=== PATIENT | male | born 1975 | race Caucasian/White ===

== ENCOUNTER 2020-12-04 08:45 | Outpatient (REF) | payer OTHER, SELFPAY ==
[2020-12-04 11:56] LABS: Alanine Aminotransferase 29 U/L (0-40); Albumin Level 3.5 g/dL (3.5-5.0); Alkaline Phosphatase 88 U/L (39-117); Anion Gap 11 (12-20); Aspartate Amino Transferase 30 U/L (5-37); Bilirubin Total 0.6 mg/dL (0.0-1.0); Blood Urea Nitrogen 17 mg/dL (9-16); Calcium 8.7 mg/dL (8.4-10.2); Carbon Dioxide 29 mmol/L (22-29); Chloride 107 mmol/L (96-108); Cholesterol 168 mg/dL; Estimated Glomerular Filt Rate > 60; Glucose Fasting 74 mg/dL (60-99); HDL Cholesterol 28 mg/dL; LDL Cholesterol Calculated 115 mg/dl; Potassium 4.3 mmol/L (3.3-5.1); Sodium 143 mmol/L (135-145); Total Protein 6.2 g/dL (6.5-8.0); Triglycerides 127 mg/dL
[2020-12-04 12:05] LABS: Creatinine Urine 159.47 mg/dL
[2020-12-04 12:18] LABS: TSH reflex Free T4 2.61 uIU/mL (0.32-4.0)
[2020-12-04 12:39] LABS: Microalbum/Creatinine Ratio Ur 1639.8 ug/mg cr
== END 2020-12-04 08:46 | disposition home or self-care (01) ==
LOC: HO.WFDLDS 08:45
PROVIDERS: Visit Provider Family Medicine
DX: Z00.00 Encounter for general adult medical examination without abnormal findings (principal); I10 Essential (primary) hypertension
CPT/HCPCS: 36415; 80053; 80061; 82043; 84443

== ENCOUNTER 2020-12-20 09:21 | Inpatient (IN) | payer OTHER, SELFPAY ==
--- NOTE | ~2020-12-20 | US_ITS ---
EXAMINATION: BILATERAL LOWER EXTREMITY DUPLEX CLINICAL INFORMATION: Diabetic foot ulcer COMPARISON: None TECHNIQUE: Real-time ultrasound and Doppler techniques (integrating B-mode 2-D vascular images, Doppler spectral analysis and color flow Doppler imaging) were utilized to interrogate the lower extremities. FINDINGS: RIGHT LEG: Common femoral artery: 144 cm/s, multiphasic Profunda femoris artery: 71.5 cm/s, multiphasic Superficial femoral artery (proximal): 135 cm/s, multiphasic Superficial femoral artery (mid): 112 cm/s, multiphasic Superficial femoral artery (distal): 128 cm/s, multiphasic Proximal popliteal artery: 109 cm/s, multiphasic Peroneal artery: 143 cm/s, multiphasic Posterior tibial artery: 156 cm/s, multiphasic LEFT LEG: Common femoral artery: 122 cm/s, multiphasic Profunda femoris artery: 65.7 cm/s, multiphasic Superficial femoral artery (proximal): 114 cm/s, multiphasic Superficial femoral artery (mid): 103 cm/s, multiphasic Superficial femoral artery (distal): 73.9 cm/s, multiphasic Popliteal artery: 76.8 cm/s, multiphasic Peroneal artery: 67.4 cm/s, multiphasic Posterior tibial artery: 55 cm/s, multiphasic US/US arterial duplex LE BI IMPRESSION: There is no evidence of any hemodynamically significant lower extremity arterial disease by duplex Doppler criteria at rest.
--- NOTE | ~2020-12-20 | MR_ITS ---
EXAMINATION: MRI OF THE RIGHT FOOT WITH AND WITHOUT CONTRAST CLINICAL INFORMATION: Rule out osteomyelitis. COMPARISON: Radiograph dated 12/20/2020 TECHNIQUE: Multidetector volumetric imaging was obtained through the right foot on a 1.5 Estela magnet before and after intravenous administration of 10 mL Gadavist. FINDINGS: A soft tissue wound is suspected at the dorsal aspect of the third toe around the nailbed near the distal phalanx. There is underlying marrow edema signal and hyperenhancement within the distal and middle phalanges. There is loss of normal fat marrow signal intensity within the middle phalanx on T1-weighted images, consistent with osteomyelitis. Normal fat signal intensity in the distal phalanx appears relatively well-preserved. Tiny soft tissues are edematous with hyperenhancement. No appreciable fluid collections are identified. Soft tissue edema extends proximally within the forefoot and midfoot, most pronounced along the dorsal soleus fat. No tenosynovitis. No additional areas of osteomyelitis are identified. Minimal first MTP osteoarthritis. The great toe distal phalanx is absent. Plantar fascial is normal. MR/MR foot RT wo/w con IMPRESSION: Acute osteomyelitis at the middle phalanx of the third toe. There is a soft tissue wound at the dorsal aspect of the third toe near the distal phalanx. Reactive marrow edema signal is present in the distal phalanx without more definitive findings of osteomyelitis. No abscess.
--- NOTE | ~2020-12-20 | XR_ITS ---
EXAMINATION: XR FOOT, RIGHT CLINICAL INFORMATION: Redness and swelling COMPARISON: None TECHNIQUE: AP, lateral, and oblique views of the right foot. FINDINGS: The distal phalanx of the great toe is absent and has presumably been removed. No fracture, dislocation or x-ray evidence of osteomyelitis is seen. There is soft tissue swelling of the great toe and over the midfoot. No abnormal air collection or soft tissue foreign body is seen. Joint spaces are normal. There is soft tissue arterial calcification. There is a small plantar calcaneal spur. XR/XR foot RT 2V IMPRESSION: No fracture or x-ray evidence of osteomyelitis. Absent distal phalanx of the great toe which has presumably been removed. Soft tissue swelling of the great toe and midfoot.
[2020-12-20 09:43] VITALS: BP 180/108; PULSE 94; RESP 20; O2SAT 99
[2020-12-20 10:02] VITALS: BMI 43.0
[2020-12-20 10:13] VITALS: TEMP 36.8
--- NOTE | 2020-12-20 10:39 | ED.LOWEXIN ---
HPI - Extremity Injury (Lower) General Chief Complaint: Extremity Injury, Lower Stated Complaint: rt foot ulcer Time Seen by Provider: 12/20/20 10:37 Source: patient Mode of arrival: ambulatory Limitations: no limitations History of Present Illness HPI Narrative: Foot swelling and redness 4 weeks ago, was told to take antibiotics which he did not get them. Since Friday he developed the swelling and redness. Denies fever or chills. Sugars have been controlled. Relieving factors: nothing Exacerbating factors: nothing Related Data Previous Rx's Medication Instructions Recorded atorvastatin 40 mg tablet 40 mg PO DAILY 90 Days #90 tab 11/21/20 blood sugar diagnostic (FreeStyle #200 ea 11/21/20 Lite Strips) blood-glucose meter (FreeStyle #1 ea 11/21/20 Lite Meter) cholecalciferol (vitamin D3) 1,250 1,250 mcg PO QWEEK 90 Days #12 cap 11/21/20 mcg (50,000 unit) capsule dulaglutide 3 mg/0.5 mL 3 mg (0.5 mL) SUBCUT QWEEK 30 Days 11/21/20 subcutaneous pen injector #2.5 ml (Trulicity) glimepiride 4 mg tablet 4 mg PO DAILY 30 Days #30 tab 11/21/20 insulin aspart U-100 100 unit/mL 6 unit (0.06 mL) SUBCUT TID 30 11/21/20 (3 mL) subcutaneous pen (Novolog Days #6 ml Flexpen U-100 Insulin aspart) insulin glargine 100 unit/mL (3 15 unit (0.15 mL) SUBCUT QAM 30 11/21/20 mL) subcutaneous pen (Lantus Days #6 ml Solostar U-100 Insulin) lancets 28 gauge (FreeStyle #200 ea 11/21/20 Lancets) metformin 1,000 mg tablet 1,000 mg PO DAILY 30 Days #30 tab 11/21/20 pen needle, diabetic 32 gauge x #400 ea 11/21/20 (BD Charissa 2nd Gen Pen Needle) Allergies Allergy/AdvReac Type Severity Reaction Status Date / Time barium sulfate Allergy Unknown chest pain Verified 12/19/20 10:25 No Known Allergies Allergy Verified 12/19/20 10:25 Review of Systems Constitutional: Constitutional: Reports no additional constitutional complaints Eyes: Eyes: Reports no additional eye complaints ENT: Denies dizziness Cardiovascular: Cardiovascular: Reports no additional cardiovascular complaints Respiratory: Respiratory: Reports as per HPI Gastrointestinal: Gastrointestinal: Reports no additional gastrointestinal complaints Musculoskeletal: Musculoskeletal: Reports no additional musculoskeletal complaints Integumentary/Breasts: Skin/Breast: Denies rash Neurologic: Reports system reviewed and no additional complaints, except as documented, Denies dizziness and Denies Sensory deficit (Neuro) Psychiatric: Psychiatric: Denies anxiety [facility] Past Medical History Medical History Diabetes mellitus Right great toe amputee Undescended left testicle Surgical History Hx of tonsillectomy Social History Social History Housing: Apartment Patient Tobacco Use Status: Never used Tobacco e-Cigarette/Vaping Use: Never Used Advance Directives: Yes Advance Directives Information Provided: Yes Advance Directives on File: No service: No Current occupational status: disabled Physical Exam Vital Signs: Vital Signs: Last Vital Signs Temp 98.3 F 12/20/20 10:13 Pulse 94 12/20/20 09:43 Resp 20 12/20/20 09:43 BP 180/108 H 12/20/20 09:43 Pulse Ox 99 12/20/20 09:43 Body Mass Index 43.0 Const: Other: obese male in no acute distress Nutritional Appearance: average body habitus Orientation/consciousness: oriented to person and patient oriented x3 Limitations: no limitations HENMT: Head: Yes normal to inspection Ears: external ears normal General nose exam: Normal external nose present Mouth: Normal oral and palatal mucosa present and oropharynx normal Throat: Yes posterior oropharynx normal Eyes: General: appearance normal, both eyes and all related structures Neck: Other: supple Neck: Yes normal visual inspection Chest: Chest palpation & inspection: normal inspection of the chest Resp: Auscultation: clear to auscultation bilaterally Cardio: Jugular venous distension: no JVD Rate: regular rate Rhythm: regular rhythm Heart sounds: S1 normal heart sound present and S2 normal heart sound present GI: Inspection: Yes normal to inspection Palpation (GI): Soft to palpation, nontender and No hepatosplenomegaly present Auscultation: normal bowel sounds : General: Yes no CVA tenderness Back/Spine/Pelvis: Back: no CVA tenderness Skin: General skin exam: no rashes or lesions noted Neuro: General: oriented to person and patient oriented x3 Cranial nerves: Yes CN's II-XII intact bilaterally Motor exam (neuro): 5/5 motor strength present throughout Sensory Exam: No Sensory deficit (Neuro) Extrem: Other: right foot with swelling and erythema, right 3rd toe with pus and drainage Psych: Appearance: grossly normal Course Reevaluation(s) Reevaluation #1: Patient with elevated CRP and sed rate will admit for osteo and obtain MRI in the morning Time: 14:24 MDM - Extremity Injury (Lower) Lab Data Result diagrams: 12/20/20 11:23 12/20/20 11:23 Labs: Lab Results 12/20/20 12/20/20 12/20/20 Range/Units 11:23 11:23 11:23 WBC 9.2 (4.8-10.8) X10*3/uL RBC 5.53 (4.60-5.80) X10*6/uL Hgb 14.7 (14.0-18.0) g/dl Hct 46.3 (42.0-52.0) % MCV 83.7 (80.0-98.0) fL MCH 26.6 L (27.0-33.0) pg MCHC 31.7 (31.0-36.0) g/dl RDW 13.4 (11.0-16.0) % Plt Count 291 (160-400) X10*3/uL MPV 9.9 (9.4-12.4) fL Immature Gran % (Auto) 0.9 H (0.0-0.4) % Neut % (Auto) 64.5 (45-73) % Lymph % (Auto) 23.3 (20-40) % [place] % (Auto) 8.1 (2-11) % Eos % (Auto) 2.7 (0-4) % Baso % (Auto) 0.5 (0-2) % Lymph # (Auto) 2.1 (1.2-4.9) X10*3/uL [place] # (Auto) 0.7 (0.1-1.2) X10*3/uL Eos # (Auto) 0.3 (0.0-0.4) X10*3/uL Baso # (Auto) 0.1 (0.0-0.2) X10*3/uL Abs Immat Gran (auto) 0.08 H (0.00-0.03) X10*3/uL Absolute Neuts (auto) 5.9 (2.0-8.3) x10*3/uL Absolute Nucleated RBC 0.000 (0.0-0.012) X10*3/uL Nucleated RBC % (auto) 0.0 (0.0-0.2) /100WBC ESR 63 H (0-15) MM/HR Sodium 141 (135-145) mmol/L Potassium 4.2 (3.3-5.1) mmol/L Chloride 104 (96-108) mmol/L Carbon Dioxide 31 H (22-29) mmol/L Anion Gap 10 L (12-20) BUN 13 (9-16) mg/dL Creatinine 0.91 (0.5-1.4) mg/dL Estim Creat Clear Calc 142.4 Estimated GFR > 60 Random Glucose 111 (60-115) mg/dL Calcium 8.7 (8.4-10.2) mg/dL C-Reactive Protein 4.49 H (< or = 0.50) mg/dL Discharge Plan Discharge Clinical Impression: Diabetes mellitus Osteomyelitis Qualifiers: Osteomyelitis type: other acute Osteomyelitis location: foot Laterality: left Qualified Code(s): M86.172 - Other acute osteomyelitis, left ankle and foot Patient Disposition: Admitted As Inpatient
[2020-12-20] MEDS: Ampicillin Sodium/Sulbactam Na 3 GM in 0.9 % Sodium Chloride 100 ML IV (11:26)
[2020-12-20 11:29] LABS: MANUAL DIFF FLAG NO
[2020-12-20 11:34] LABS: Basophils Absolute Auto 0.1 X10*3/uL (0.0-0.2); Basophils Percent Auto 0.5 % (0-2); Eosinophils Absolute Auto 0.3 X10*3/uL (0.0-0.4); Eosinophils Percent Auto 2.7 % (0-4); Hematocrit 46.3 % (42.0-52.0); Hemoglobin 14.7 g/dl (14.0-18.0); Imm Gran Abs Auto 0.08 X10*3/uL (0.00-0.03); Imm Gran Pct Auto 0.9 % (0.0-0.4); Lymphocytes Absolute Auto 2.1 X10*3/uL (1.2-4.9); Lymphocytes Percent Auto 23.3 % (20-40); Mean Corpuscular HGB Conc 31.7 g/dl (31.0-36.0); Mean Corpuscular Hemoglobin 26.6 pg (27.0-33.0); Mean Corpuscular Volume 83.7 fL (80.0-98.0); Mean Platelet Volume 9.9 fL (9.4-12.4); Monocytes Absolute Auto 0.7 X10*3/uL (0.1-1.2); Monocytes Percent Auto 8.1 % (2-11); Neutrophils Absolute Auto 5.9 x10*3/uL (2.0-8.3); Neutrophils Percent Auto 64.5 % (45-73); Platelet Count 291 X10*3/uL (160-400); Red Blood Count 5.53 X10*6/uL (4.60-5.80); Red Cell Distribution Width 13.4 % (11.0-16.0); White Blood Count 9.2 X10*3/uL (4.8-10.8)
[2020-12-20 11:48] LABS: Anion Gap 10 (12-20); Blood Urea Nitrogen 13 mg/dL (9-16); C Reactive Protein 4.49 mg/dL (< or = 0.50); Calcium 8.7 mg/dL (8.4-10.2); Carbon Dioxide 31 mmol/L (22-29); Chloride 104 mmol/L (96-108); Creatinine Clr Calc Pharmacy 142.4; Estimated Glomerular Filt Rate > 60; Glucose Random 111 mg/dL (60-115); Potassium 4.2 mmol/L (3.3-5.1); Sodium 141 mmol/L (135-145)
[2020-12-20] MEDS: 0.9 % Sodium Chloride 1,000 ML 125 ML IVCONT ×2 (12:18→20:37)
[2020-12-20 12:26] LABS: Erythrocyte Sedimentation Rate 63 MM/HR (0-15)
[2020-12-20 15:51] VITALS: BP 194/106; PULSE 95; RESP 18; TEMP 36.8; O2SAT 95
--- NOTE | 2020-12-20 16:26 | PHA.PROG ---
Admission Date/Time: Indication: Skin and skin structure; possible osteo Weight in k.078 kg Adjusted body weight in K.4 Butler body weight in Kg: Obesity Dosing Indication % IBW: obese model Serum Creatinine - Last 168 Hours 12/20/20 11:23 Creatinine 0.91 Estimated CrCl and GFR - Last 168 Hours 12/20/20 11:23 Estim Creat Clear Calc 142.4 Estimated GFR > 60 Vancomycin Loading Dose: Current Vancomycin Dosing Regimen:1250 q12h Vancomycin Monitoring using AUC goal of 400 - 600 range with trough as surrogate marker: AUC 554; Trough 0.91 Date and Time for next Vancomycin Level to be drawn: 12/22 @0400 Pharmacist Comments on Vancomycin Plan: using obese model Vancomycin dosing will take advantage of [employer] as a clinical decision support tool that uses Bayesian modeling to calculate individual patient's pharmacokinetic parameters and forecast the patient's drug concentration time course with the target goal AUC 24 range of 400 - 600 mg/L/hr.
--- NOTE | 2020-12-20 16:35 | PM.IMHP ---
History of Present Illness Date of Service: 12/20/20 Chief Complaint: infection R 3rd toe 45yo M with DM2, dependent on insulin, with neuropathy, presenting with 3-4 weeks of worsening ulcer on dorsum of R 3rd toe. He had amputation of the tip of the R 1st toe in the past due to waterborne infection. No trauma to the 3rd toe. He saw a doctor a few weeks ago and was supposed to get antibiotics but says he never got a prescription at the pharmacy. The toe started swelling a few days ago and he became concerned. No fever/chills. No pain, though as noted above, he is neuropathic. No nausea/vomiting. Review of Systems Review of Systems: Yes all other systems are reviewed and are negative [facility] Medical History Diabetes mellitus Right great toe amputee Undescended left testicle Pertinent family history: DM2 Surgical History Hx of tonsillectomy Social History Housing: Apartment Patient Tobacco Use Status: Never used Tobacco e-Cigarette/Vaping Use: Never Used Advance Directives: Yes Advance Directives Information Provided: Yes Advance Directives on File: No service: No Current occupational status: disabled Meds Allergies Allergy/AdvReac Type Severity Reaction Status Date / Time barium sulfate Allergy Unknown chest pain Verified 12/19/20 10:25 No Known Allergies Allergy Verified 12/19/20 10:25 Active Medications: Current Medications Acetaminophen (Acetaminophen 325 Mg Tablet) 650 mg PO Q6H PRN PRN Reason: Pain, Mild (Pain Scale 1-3) Dextrose (Dextrose 50 % 25 Gm/50 Ml Vial) 25 gm IVPUSH Q15M PRN; Protocol PRN Reason: per Hypoglycemia Standing Ord. Enoxaparin Sodium (Enoxaparin Sodium 40 Mg/0.4 Ml Syringe) 40 mg SUBCUT Q24H KARLY Glucose (Glucose Gel 15 Gm Gel..Gram.) 15 gm PO Q15M PRN; Protocol PRN Reason: per Hypoglycemia Standing Ord. Sodium Chloride (Ns) 1,000 mls @ 125 mls/hr IVCONT .Q8H KARLY Last Admin: 12/20/20 12:18 Dose: 125 mls/hr Documented by: Piperacillin Sod/Tazobactam (Sod 3.375 gm/ Sodium Chloride) 50 mls @ 100 mls/hr IV Q6H KARLY Vancomycin HCl 1,250 mg/ (Sodium Chloride) 250 mls @ 166.667 mls/hr IV Q12H KARLY Insulin Human Lispro (Insulin Lispro 100 Unit/Ml 3 Ml Vial) 0 unit SUBCUT QIDACHS KARLY; Protocol Ondansetron HCl (Ondansetron Hcl 4 Mg/2 Ml Vial) 4 mg IVPUSH Q8H PRN PRN Reason: Nausea and Vomiting Pharmacy Consult (Consult Rx Perform Med Rec) 1 each MISCELLANE ONCE PRN PRN Reason: Consult order Sodium Chloride (0.9 % Sodium Chloride Flush 3 Ml Syringe) 3 ml IVFLUSH QSHIFT KARLY Physical Exam Vital Signs and Narrative: Vital Signs: Last Vital Signs Temp 98.3 F 12/20/20 15:51 Pulse 95 12/20/20 15:51 Resp 18 12/20/20 15:51 BP 194/106 H 12/20/20 15:51 Pulse Ox 95 12/20/20 15:51 Body Mass Index 43.0 Gen: in no acute distress HEENT: sclera anicteric, moist mucus membranes Neck: supple Lungs: clear to auscultation bilaterally Heart: regular rate and rhythm, no murmurs Abd: soft, non-tender, non-distended, obese Ext: prior amputation of tip of R 1st toe Skin: R 3rd toe with ulcer on dorsum and purulent drainage Neuro: alert and oriented x3, no focal findings Psych: appropriate affect Results Labs CBC and Chem 7: 12/20/20 11:23 12/20/20 11:23 Labs: Laboratory Results - last 24 hr 12/20/20 12/20/20 12/20/20 11:23 11:23 11:23 MCV 83.7 MCH 26.6 L MCHC 31.7 RDW 13.4 Plt Count 291 MPV 9.9 Immature Gran % (Auto) 0.9 H Neut % (Auto) 64.5 Lymph % (Auto) 23.3 [place] % (Auto) 8.1 Eos % (Auto) 2.7 Baso % (Auto) 0.5 Lymph # (Auto) 2.1 [place] # (Auto) 0.7 Eos # (Auto) 0.3 Baso # (Auto) 0.1 Abs Immat Gran (auto) 0.08 H Absolute Neuts (auto) 5.9 Absolute Nucleated RBC 0.000 Nucleated RBC % (auto) 0.0 ESR 63 H Anion Gap 10 L Estim Creat Clear Calc 142.4 Estimated GFR > 60 Random Glucose 111 Calcium 8.7 C-Reactive Protein 4.49 H Impressions Foot X-Ray 12/20/20 10:39 IMPRESSION: No fracture or x-ray evidence of osteomyelitis. Absent distal phalanx of the great toe which has presumably been removed. Soft tissue swelling of the great toe and midfoot. Imaging Radiologist's Impressions: Impressions Foot X-Ray 12/20/20 10:39 IMPRESSION: No fracture or x-ray evidence of osteomyelitis. Absent distal phalanx of the great toe which has presumably been removed. Soft tissue swelling of the great toe and midfoot. Assessment and Plan (1) Type 2 diabetes mellitus with right diabetic foot infection: Status: Acute 45yo M with insulin-dependent DM2 presenting with nearly 4 weeks of worsening ulcer on dorsum of R 3rd toe, concern for infected ulcer vs. deeper space infection such as osteomyelitis. Will admit to med/surg, obtain blood culture, cover broadly with vanco + pip/ezn, and obtain MRI in the am to r/o osteomyelitis. Continue basal/bolus insulin. VTE ppx with LMWH. Patient is FULL CODE. Quality Stroke Does the patient have a stroke diagnosis?: No VTE Prior VTE?: No VTE Risk Level:: Medical - moderate - high VTE Device Contraindication: N/A - Device Ordered VTE Drug Contraindication: N/A - Med Ordered
[2020-12-20 16:41] LABS: COVID-19 Test Negative (Negative); IDNOW Serial# 9DD0AD1C
--- NOTE | 2020-12-20 17:09 | PHA.MEDREC ---
Pharmacy Consult ? Medication Reconciliation Pharmacy has completed the medication reconciliation.
[2020-12-20] MEDS: Piperacillin Sodium/Tazobactam 3.375 GM in 0.9 % Sodium Chloride 50 ML IV ×2 (17:25→23:30)
[2020-12-20] MEDS: vancomycin HCL 1,250 MG in 0.9 % Sodium Chloride 250 ML 166.67 MG IV (18:08)
--- NOTE | 2020-12-20 19:13 | PC.NURSE ---
PT AWAKE AND SITTING IN CHAIR SPEAKING TO FAMILY ON PHONE. PT DENIES ANY COMPLAINTS. RESPIRATIONS EASY, N/L. SKIN W/D. PT AWAITING FOR FURTHER ORDERS. WILL CONTINUE TO MONITOR PT.
[2020-12-20 19:15] LABS: Glucose, Whole Blood 86 mg/dL (60-115)
[2020-12-20] MEDS: Atorvastatin Calcium 40 MG TABLET PO (20:40)
--- NOTE | 2020-12-20 21:53 | PC.NURSE ---
PT'S FAMILY CALLED AND STATES MY DAD IS IN PAIN AND DOES NOT KNOW ANY EMIRATI. AWARE.
[2020-12-20 22:00] VITALS: BP 165/94; PULSE 88; RESP 18; TEMP 36.7; O2SAT 97
[2020-12-20 22:04] LABS: Glucose, Whole Blood 84 mg/dL (60-115)
[2020-12-20] MEDS: Acetaminophen 325 MG TABLET 650 MG PO (22:05)
--- NOTE | 2020-12-20 22:20 | PC.NURSE ---
BS - 88. PT EATING A SANDWICH AND DRINKING OJ X 2. WILL CONTINUE TO MONITOR PT'S BS. PT AWAITING FOR ROOM ASSIGNMENT.
[2020-12-21] VITALS (7 sets, daily range): BP systolic 131–192; BP diastolic 75–100; PULSE 88–107; RESP 16–20; TEMP 36.6–37.1; O2SAT 93–97; BMI 43.0
[2020-12-21] MEDS: 0.9 % Sodium Chloride 1,000 ML 125 ML IVCONT ×2 (04:14→21:42)
[2020-12-21] MEDS: 0.9 % Sodium Chloride Flush 3 ML SYRINGE IVFLUSH (04:14)
--- NOTE | 2020-12-21 07:12 | PC.NURSE ---
report taken from luis alberto palmer at 0700- pt not changed over into hospital attire. awaiting admission. up sitting in chair next to stretcher. attempting to figure out antibiotic schedule with pharmacy.
--- NOTE | 2020-12-21 07:20 | PC.NURSE ---
antibiotics on previous shift not ended at the correct time. both ended at 0415 more than a few hours after initially hung. spoke with edgard from pharmacy who agrees to give the antibiotic now.
[2020-12-21] MEDS: Piperacillin Sodium/Tazobactam 3.375 GM in 0.9 % Sodium Chloride 50 ML IV ×4 (07:32→21:42)
[2020-12-21 07:40] LABS: Glucose, Whole Blood 93 mg/dL (60-115)
--- NOTE | 2020-12-21 07:58 | PC.NURSE ---
pt to mri at this time
[2020-12-21 08:15] LABS: Creatinine Clr Calc Pharmacy 156.1; Estimated Glomerular Filt Rate > 60
[2020-12-21 08:51] LABS: Estimated Average Glucose 203 mg/dL; Hemoglobin A1c % 8.7 %
--- NOTE | 2020-12-21 10:19 | PC.NURSE ---
rn to call back for report
--- NOTE | 2020-12-21 10:28 | PC.NURSE ---
report given to [facility] rn
[2020-12-21] MEDS: vancomycin HCL 1,250 MG in 0.9 % Sodium Chloride 250 ML 166.67 MG IV ×2 (10:36→17:18)
--- NOTE | 2020-12-21 10:38 | PC.NURSE ---
pt will not keep [facility] on- continues to change back into personal clothes even thought redirected.
[2020-12-21 11:28] LABS: Glucose, Whole Blood 121 mg/dL (60-115)
--- NOTE | 2020-12-21 13:32 | P.PNIM_ITS ---
Subjective Subjective Date of Service: 12/21/20 Interval History: no pain no fever MRI with osteomyelitis arterial dopplers negative Review of Systems Review of Systems: Yes all other systems are reviewed and are negative Physical Exam Vital Signs: Vital Signs: Last Vital Signs Temp 98 F 12/21/20 11:18 Pulse 94 12/21/20 11:18 Resp 20 12/21/20 11:18 BP 170/90 H 12/21/20 11:18 Pulse Ox 96 12/21/20 11:18 Body Mass Index 43.0 Gen: in no acute distress HEENT: sclera anicteric, moist mucus membranes Neck: supple Lungs: clear to auscultation bilaterally Heart: regular rate and rhythm, no murmurs Abd: soft, non-tender, non-distended, obese Ext: prior amputation of tip of R 1st toe Skin: R 3rd toe with ulcer on dorsum and purulent drainage Neuro: alert and oriented x3, no focal findings Psych: appropriate affect Objective Data Active Medications Acetaminophen (Acetaminophen 325 Mg Tablet) 650 mg PO Q6H PRN PRN Reason: Pain, Mild (Pain Scale 1-3) Last Admin: 12/20/20 22:05 Dose: 650 mg Documented by: MARYCRUZ Atorvastatin Calcium (Atorvastatin Calcium 40 Mg Tablet) 40 mg PO BEDTIME [facility] Last Admin: 12/20/20 20:40 Dose: 40 mg Documented by: MARYCRUZ Dextrose (Dextrose 50 % 25 Gm/50 Ml Vial) 25 gm IVPUSH Q15M PRN; Protocol PRN Reason: per Hypoglycemia Standing Ord. Enoxaparin Sodium (Enoxaparin Sodium 40 Mg/0.4 Ml Syringe) 40 mg SUBCUT Q24H [facility] Last Admin: 12/20/20 17:27 Dose: Not Given Documented by: OWEN Non-Admin Reason: Patient Refused Glucose (Glucose Gel 15 Gm Gel..Gram.) 15 gm PO Q15M PRN; Protocol PRN Reason: per Hypoglycemia Standing Ord. Sodium Chloride (Ns) 1,000 mls @ 125 mls/hr IVCONT .Q8H [facility] Last Infusion: 12/21/20 12:43 Dose: 0 mls/hr Documented by: EDUARDA Piperacillin Sod/Tazobactam (Sod 3.375 gm/ Sodium Chloride) 50 mls @ 100 mls/hr IV Q6H [facility] Last Infusion: 12/21/20 08:11 Dose: 0 mls/hr Documented by: MOOSE Vancomycin HCl 1,250 mg/ (Sodium Chloride) 250 mls @ 166.667 mls/hr IV Q12H [facility] Last Infusion: 12/21/20 12:45 Dose: 0 mls/hr Documented by: EDUARDA Insulin Glargine (Insulin Glargine,Hum.Rec.Anlog 100 Unit/Ml 10 Ml Vial) 60 unit SUBCUT BEDTIME [facility] Insulin Human Lispro (Insulin Lispro 100 Unit/Ml 3 Ml Vial) 0 unit SUBCUT QIDACHS [facility]; Protocol Last Admin: 12/21/20 11:43 Dose: Not Given Documented by: EDUARDA Non-Admin Reason: No Insulin Coverage Ondansetron HCl (Ondansetron Hcl 4 Mg/2 Ml Vial) 4 mg IVPUSH Q8H PRN PRN Reason: Nausea and Vomiting Pharmacy Consult (Consult Rx Perform Med Rec) 1 each MISCELLANE ONCE PRN PRN Reason: Consult order Sodium Chloride (0.9 % Sodium Chloride Flush 3 Ml Syringe) 3 ml IVFLUSH QSHIFT [facility] Last Admin: 12/21/20 07:32 Dose: Not Given Documented by: MOOSE Non-Admin Reason: IV Running Labs CBC & Chem 7: 12/20/20 11:23 12/21/20 Unknown Labs: Laboratory Results - last 24 hr 12/20/20 12/20/20 12/20/20 16:20 17:23 22:00 Estim Creat Clear Calc Estimated GFR POC Glucose 86 84 Estimat Average Glucose Hemoglobin A1c % COVID-19 (KAT[facility]N) Negative COVID-19 Clin Com See Note 12/21/20 12/21/20 12/21/20 06:53 07:35 11:18 Estim Creat Clear Calc Estimated GFR POC Glucose 93 121 H Estimat Average Glucose 203 Hemoglobin A1c % 8.7 COVID-19 (KATELYN) COVID-19 Clin Com 12/21/20 Unknown Estim Creat Clear Calc 156.1 Estimated GFR > 60 POC Glucose Estimat Average Glucose Hemoglobin A1c % COVID-19 (KATELYN) COVID-19 Clin Com Laboratory Results WBC 9.2 X10*3/uL (4.8-10.8) 12/20/20 11:23 RBC 5.53 X10*6/uL (4.60-5.80) 12/20/20 11:23 Hgb 14.7 g/dl (14.0-18.0) 12/20/20 11:23 Hct 46.3 % (42.0-52.0) 12/20/20 11:23 MCV 83.7 fL (80.0-98.0) 12/20/20 11:23 MCH 26.6 pg (27.0-33.0) L 12/20/20 11:23 MCHC 31.7 g/dl (31.0-36.0) 12/20/20 11:23 RDW 13.4 % (11.0-16.0) 12/20/20 11:23 Plt Count 291 X10*3/uL (160-400) 12/20/20 11:23 MPV 9.9 fL (9.4-12.4) 12/20/20 11:23 Immature Gran % (Auto) 0.9 % (0.0-0.4) H 12/20/20 11:23 Neut % (Auto) 64.5 % (45-73) 12/20/20 11:23 Lymph % (Auto) 23.3 % (20-40) 12/20/20 11:23 [place] % (Auto) 8.1 % (2-11) 12/20/20 11:23 Eos % (Auto) 2.7 % (0-4) 12/20/20 11:23 Baso % (Auto) 0.5 % (0-2) 12/20/20 11:23 Lymph # (Auto) 2.1 X10*3/uL (1.2-4.9) 12/20/20 11:23 [place] # (Auto) 0.7 X10*3/uL (0.1-1.2) 12/20/20 11:23 Eos # (Auto) 0.3 X10*3/uL (0.0-0.4) 12/20/20 11:23 Baso # (Auto) 0.1 X10*3/uL (0.0-0.2) 12/20/20 11:23 Abs Immat Gran (auto) 0.08 X10*3/uL (0.00-0.03) H 12/20/20 11:23 Absolute Neuts (auto) 5.9 x10*3/uL (2.0-8.3) 12/20/20 11:23 Absolute Nucleated RBC 0.000 X10*3/uL (0.0-0.012) 12/20/20 11:23 Nucleated RBC % (auto) 0.0 /100WBC (0.0-0.2) 12/20/20 11:23 ESR 63 MM/HR (0-15) H 12/20/20 11:23 Sodium 141 mmol/L (135-145) 12/20/20 11:23 Potassium 4.2 mmol/L (3.3-5.1) 12/20/20 11:23 Chloride 104 mmol/L (96-108) 12/20/20 11:23 Carbon Dioxide 31 mmol/L (22-29) H 12/20/20 11:23 Anion Gap 10 (12-20) L 12/20/20 11:23 BUN 13 mg/dL (9-16) 12/20/20 11:23 Creatinine 0.83 mg/dL (0.5-1.4) 12/21/20 Unknown Estim Creat Clear Calc 156.1 12/21/20 Unknown Estimated GFR > 60 12/21/20 Unknown POC Glucose 121 mg/dL (60-115) H 12/21/20 11:18 Random Glucose 111 mg/dL (60-115) 12/20/20 11:23 Estimat Average Glucose 203 mg/dL 12/21/20 06:53 Hemoglobin A1c % 8.7 % 12/21/20 06:53 Calcium 8.7 mg/dL (8.4-10.2) 12/20/20 11:23 C-Reactive Protein 4.49 mg/dL (< or = 0.50) H 12/20/20 11:23 COVID-19 (KATELYN) Negative (Negative) 12/20/20 16:20 COVID-19 Clin Com See Note 12/20/20 16:20 Impressions Foot X-Ray 12/20/20 10:39 IMPRESSION: No fracture or x-ray evidence of osteomyelitis. Absent distal phalanx of the great toe which has presumably been removed. Soft tissue swelling of the great toe and midfoot. Foot MRI 12/21/20 09:29 IMPRESSION: Acute osteomyelitis at the middle phalanx of the third toe. There is a soft tissue wound at the dorsal aspect of the third toe near the distal phalanx. Reactive marrow edema signal is present in the distal phalanx without more definitive findings of osteomyelitis. No abscess. Duplex Scan Lower Extremity Artery 12/21/20 10:30 IMPRESSION: There is no evidence of any hemodynamically significant lower extremity arterial disease by duplex Doppler criteria at rest. Microbiology Microbiology Results: Microbiology 12/20/20 11:23 Blood Culture - Preliminary Blood - Venous No growth after 24 hours. 12/20/20 11:20 Blood Culture - Preliminary Blood - Venous No growth after 24 hours. Assessment and Plan (1) Diabetic osteomyelitis: Status: Acute Assessment and Plan: hospital d#2 45yo M with insulin-dependent DM2 presenting with nearly 4 weeks of worsening ulcer on dorsum of R 3rd toe, found to have osteomyelitis # DM osteomyelitis - on vanc + pip/zen d#2; follow BCx; consult ID + Gen Surg # DM2, A1c 8.7 - basal/bolus insulin # HLD - statin # VTE ppx - LMWH Quality Stroke Does the patient have a stroke diagnosis?: No VTE Prior VTE?: No VTE Risk Level:: Medical - moderate - high VTE Device Contraindication: N/A - Device Ordered VTE Drug Contraindication: N/A - Med Ordered
[2020-12-21 16:00] LABS: Glucose, Whole Blood 139 mg/dL (60-115)
--- NOTE | 2020-12-21 16:26 | PM.CNGS ---
History of Present Illness Consult details Consult date: 12/21/20 Requesting physician: Rebekah Miller Narrative: 45-year-old male patient with history of diabetes mellitus and peripheral neuropathy presenting with redness and swelling of the right foot and leg found to have an open wound of the 3rd toe. 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 He denies a prior history of infection in this toe and was recently started on antibiotics however reports that he never started the antibiotics. He denies any pain in the foot, fever, chills, nausea, or vomiting. He was admitted on 12/20/2020 and placed on IV antibiotics. MRI of the foot was obtained today which revealed acute osteomyelitis at the middle phalanx of the 3rd toe. There is a soft tissue wound at the dorsal aspect of the 3rd toe and in the distal phalanx. Reactive marrow edema signal is present in the distal phalanx without more definitive findings of osteomyelitis. No abscess is identified. Patient is currently being treated with Zosyn and Vanco. Review of Systems Review of Systems: Yes all other systems are reviewed and are negative Constitutional: Constitutional: Denies chills, Denies fever(s) and Denies night sweats Cardiovascular: Cardiovascular: Reports no additional cardiovascular complaints Respiratory: Respiratory: Reports no additional respiratory complaints Gastrointestinal: Gastrointestinal: Reports no additional gastrointestinal complaints Musculoskeletal: Musculoskeletal: Reports as per HPI Integumentary/Breasts: Skin/Breast: Reports as per HPI Neurologic: Comments: Numbness in lower extremities PMFSH Past Medical History Medical History Diabetes mellitus Right great toe amputee Undescended left testicle Surgical History Surgical History Hx of tonsillectomy Social History Social History Housing: Apartment Patient Tobacco Use Status: Never used Tobacco e-Cigarette/Vaping Use: Never Used service: No Current occupational status: disabled Meds Allergies Allergy/AdvReac Type Severity Reaction Status Date / Time barium sulfate Allergy Unknown chest pain Verified 12/19/20 10:25 No Known Allergies Allergy Verified 12/19/20 10:25 Active Medications: Current Medications Acetaminophen (Acetaminophen 325 Mg Tablet) 650 mg PO Q6H PRN PRN Reason: Pain, Mild (Pain Scale 1-3) Last Admin: 12/20/20 22:05 Dose: 650 mg Documented by: Atorvastatin Calcium (Atorvastatin Calcium 40 Mg Tablet) 40 mg PO BEDTIME ON [facility] OF [facility] Last Admin: 12/20/20 20:40 Dose: 40 mg Documented by: Dextrose (Dextrose 50 % 25 Gm/50 Ml Vial) 25 gm IVPUSH Q15M PRN; Protocol PRN Reason: per Hypoglycemia Standing Ord. Enoxaparin Sodium (Enoxaparin Sodium 40 Mg/0.4 Ml Syringe) 40 mg SUBCUT Q24H [facility] OF [facility] Last Admin: 12/20/20 17:27 Dose: Not Given Documented by: Glucose (Glucose Gel 15 Gm Gel..Gram.) 15 gm PO Q15M PRN; Protocol PRN Reason: per Hypoglycemia Standing Ord. Sodium Chloride (Ns) 1,000 mls @ 125 mls/hr IVCONT .Q8H [facility] OF [facility] Last Infusion: 12/21/20 12:43 Dose: Infused Documented by: Piperacillin Sod/Tazobactam (Sod 3.375 gm/ Sodium Chloride) 50 mls @ 100 mls/hr IV Q6H [facility] OF [facility] Last Infusion: 12/21/20 14:02 Dose: Infused Documented by: Vancomycin HCl 1,250 mg/ (Sodium Chloride) 250 mls @ 166.667 mls/hr IV Q12H [facility] OF [facility] Last Infusion: 12/21/20 12:45 Dose: Infused Documented by: Insulin Glargine (Insulin Glargine,Hum.Rec.Anlog 100 Unit/Ml 10 Ml Vial) 60 unit SUBCUT BEDTIME ON LICENSE OF [facility] Insulin Human Lispro (Insulin Lispro 100 Unit/Ml 3 Ml Vial) 0 unit SUBCUT QIDACHS ON LICENSE OF [facility]; Protocol Last Admin: 12/21/20 11:43 Dose: Not Given Documented by: Ondansetron HCl (Ondansetron Hcl 4 Mg/2 Ml Vial) 4 mg IVPUSH Q8H PRN PRN Reason: Nausea and Vomiting Pharmacy Consult (Consult Rx Perform Med Rec) 1 each MISCELLANE ONCE PRN PRN Reason: Consult order Sodium Chloride (0.9 % Sodium Chloride Flush 3 Ml Syringe) 3 ml IVFLUSH QSHIFT ON LICENSE OF [facility] Last Admin: 12/21/20 07:32 Dose: Not Given Documented by: Home Medications Medication Instructions Recorded Confirmed Last Taken Type cholecalciferol (vitamin D3) 1,250 1,250 mcg PO Q28D 12/20/20 12/21/20 12/18/20 History mcg (50,000 unit) capsule dulaglutide 3 mg/0.5 mL 3 mg SUBCUT WE@0900 12/20/20 12/20/20 12/20/20 History subcutaneous pen injector (Trulicity) insulin glargine 100 unit/mL (3 60 unit SUBCUT BEDTIME 12/20/20 12/20/20 12/19/20 History mL) subcutaneous pen (Lantus Solostar U-100 Insulin) Physical Exam Vital Signs: Vital Signs: Last Vital Signs Temp 98.7 F 12/21/20 15:10 Pulse 97 12/21/20 15:10 Resp 20 12/21/20 15:10 BP 192/86 H 12/21/20 15:10 Pulse Ox 94 12/21/20 15:10 Body Mass Index 43.0 Const: General: cooperative, healthy appearing, no acute distress and well developed Nutritional Appearance: obese Orientation/consciousness: patient oriented x3 Limitations: no limitations HENMT: Head: Yes normocephalic and Yes atraumatic Resp: Effort & Inspection: normal respiratory effort, no audible wheezes and no cough GI: Inspection: Yes normal to inspection Skin: General skin exam: no rashes or lesions noted Neuro: General: patient oriented x3 Extrem: Other: Right lower extremity with edema at the andres and forefoot. Third toe reveals a ulceration at the tip with mild erythema but no evidence of skin necrosis. Ulceration is also identified on the 2nd toe at the distal tip. The great toe on the right foot is partially amputated with no nail matrix. This is well healed without evidence of infection. No tenderness to palpation of the foot or toes. No evidence of fluctuance or necrotic skin. Results Labs Result diagrams: 12/20/20 11:23 12/21/20 Unknown Labs: Abnormal lab results 12/21/20 12/21/20 Range/Units 11:18 15:54 POC Glucose 121 H 139 H (60-115) mg/dL BMP 12/21/20 Unknown Creatinine 0.83 All other labs normal. Assessment and Plan (1) Diabetic osteomyelitis: Status: Acute 45-year-old male patient presenting with an area of osteomyelitis involving the right foot 3rd toe at the middle phalanx. Overall the skin is mostly intact with a small ulceration noted at the tip. There is no evidence of necrotic skin or underlying abscess. Patient would be a good candidate for parental antibiotics as there is minimal skin loss to the 3rd toe. Will follow along during this patient's hospitalization. Procedures Date of Service Date of Service: 12/21/20
[2020-12-21] MEDS: Enoxaparin Sodium 40 MG/0.4 ML SYRINGE SUBCUT (17:10)
[2020-12-21] MEDS: lisinopriL 10 MG TABLET PO (17:53)
[2020-12-21 20:33] LABS: Glucose, Whole Blood 125 mg/dL (60-115)
[2020-12-21] MEDS: Atorvastatin Calcium 40 MG TABLET PO (21:43)
[2020-12-21] MEDS: Insulin Glargine,Hum.rec.anlog 100 UNIT/ML 10 ML VIAL 60 UNIT SUBCUT (21:43)
[2020-12-22 03:13] VITALS: BP 134/62; PULSE 92; RESP 20; TEMP 36.9; O2SAT 96
--- NOTE | 2020-12-22 03:28 | PC.NURSE ---
Pt expressed during assessment with this rn and the avionics systems integration specialist that he wasn't told the results of the MRI of his foot, and he felt like he is falling through the cracks. This RN educated that the doctor would discuss results with pt in the morning and decide on treatment plan based on those results. I discussed with him the medications he is on to treat the infection, and that sometimes results for tests don't come back by the time the md leaves for the day. pt stated he understood.
[2020-12-22 04:08] LABS: Hematocrit 42.4 % (42.0-52.0); Hemoglobin 13.9 g/dl (14.0-18.0); Mean Corpuscular HGB Conc 32.8 g/dl (31.0-36.0); Mean Corpuscular Hemoglobin 26.9 pg (27.0-33.0); Mean Corpuscular Volume 82.2 fL (80.0-98.0); Mean Platelet Volume 9.2 fL (9.4-12.4); Platelet Count 257 X10*3/uL (160-400); Red Blood Count 5.16 X10*6/uL (4.60-5.80); Red Cell Distribution Width 13.3 % (11.0-16.0)
[2020-12-22 04:33] LABS: Vancomycin Trough 7.5 mcg/mL (10.0-20.0)
[2020-12-22 04:41] LABS: Anion Gap 10 (12-20); Blood Urea Nitrogen 11 mg/dL (9-16); C Reactive Protein 1.97 mg/dL (< or = 0.50); Calcium 7.7 mg/dL (8.4-10.2); Carbon Dioxide 25 mmol/L (22-29); Chloride 109 mmol/L (96-108); Creatinine Clr Calc Pharmacy 150.6; Estimated Glomerular Filt Rate > 60; Glucose Random 90 mg/dL (60-115); Potassium 3.9 mmol/L (3.3-5.1); Sodium 140 mmol/L (135-145)
[2020-12-22] MEDS: Piperacillin Sodium/Tazobactam 3.375 GM in 0.9 % Sodium Chloride 50 ML IV ×4 (05:14→22:58)
[2020-12-22] MEDS: vancomycin HCL 1,250 MG in 0.9 % Sodium Chloride 250 ML 166.67 MG IV (05:54)
[2020-12-22] MEDS: 0.9 % Sodium Chloride 1,000 ML 125 ML IVCONT (05:54)
[2020-12-22 07:19] LABS: Glucose, Whole Blood 84 mg/dL (60-115)
[2020-12-22 08:00] VITALS: BP 141/81; PULSE 94; RESP 20; TEMP 36.7; O2SAT 95
[2020-12-22 08:21] VITALS: BP 141/81; PULSE 94
[2020-12-22] MEDS: lisinopriL 10 MG TABLET PO (08:21)
[2020-12-22 11:21] VITALS: BP 164/86; PULSE 95; RESP 20; TEMP 36.6; O2SAT 95
[2020-12-22 11:27] LABS: Glucose, Whole Blood 125 mg/dL (60-115)
--- NOTE | 2020-12-22 12:29 | HO.PM.IMPN ---
Subjective Subjective Date of Service: 12/22/20 Interval History: no fever, chills, or toe pain Review of Systems Review of Systems: Yes all other systems are reviewed and are negative Physical Exam Vital Signs: Vital Signs: Last Vital Signs Temp 97.9 F 12/22/20 11:21 Pulse 95 12/22/20 11:21 Resp 20 12/22/20 11:21 BP 164/86 H 12/22/20 11:21 Pulse Ox 95 12/22/20 11:21 Body Mass Index 43.0 Gen: in no acute distress HEENT: sclera anicteric, moist mucus membranes Neck: supple Lungs: clear to auscultation bilaterally Heart: regular rate and rhythm, no murmurs Abd: soft, non-tender, non-distended, obese Ext: prior amputation of tip of R 1st toe Skin: R 3rd toe with ulcer, dry Neuro: alert and oriented x3, no focal findings Psych: appropriate affect Objective Data Active Medications Acetaminophen (Acetaminophen 325 Mg Tablet) 650 mg PO Q6H PRN PRN Reason: Pain, Mild (Pain Scale 1-3) Last Admin: 12/20/20 22:05 Dose: 650 mg Documented by: MARYCRUZ Atorvastatin Calcium (Atorvastatin Calcium 40 Mg Tablet) 40 mg PO BEDTIME [facility] Last Admin: 12/21/20 21:43 Dose: 40 mg Documented by: JORGE A Dextrose (Dextrose 50 % 25 Gm/50 Ml Vial) 25 gm IVPUSH Q15M PRN; Protocol PRN Reason: per Hypoglycemia Standing Ord. Enoxaparin Sodium (Enoxaparin Sodium 40 Mg/0.4 Ml Syringe) 40 mg SUBCUT Q24H [facility] Last Admin: 12/21/20 17:10 Dose: 40 mg Documented by: EDUARDA Glucose (Glucose Gel 15 Gm Gel..Gram.) 15 gm PO Q15M PRN; Protocol PRN Reason: per Hypoglycemia Standing Ord. Sodium Chloride (Ns) 1,000 mls @ 125 mls/hr IVCONT .Q8H [facility] Last Admin: 12/22/20 05:54 Dose: 125 mls/hr Documented by: JORGE A Piperacillin Sod/Tazobactam (Sod 3.375 gm/ Sodium Chloride) 50 mls @ 100 mls/hr IV Q6H [facility] Last Infusion: 12/22/20 11:11 Dose: 0 mls/hr Documented by: TONNY Vancomycin HCl 1,000 mg/ (Sodium Chloride) 270 mls @ 270 mls/hr IV Q8H [facility] Insulin Glargine (Insulin Glargine,Hum.Rec.Anlog 100 Unit/Ml 10 Ml Vial) 60 unit SUBCUT BEDTIME [facility] Last Admin: 12/21/20 21:43 Dose: 60 unit Documented by: JORGE A Insulin Human Lispro (Insulin Lispro 100 Unit/Ml 3 Ml Vial) 0 unit SUBCUT QIDACHS [facility]; Protocol Last Admin: 12/22/20 11:29 Dose: Not Given Documented by: TONNY Non-Admin Reason: No Insulin Coverage Lisinopril (Lisinopril 10 Mg Tablet) 10 mg PO DAILY [facility]; Protocol Last Admin: 12/22/20 08:21 Dose: 10 mg Documented by: TONNY Ondansetron HCl (Ondansetron Hcl 4 Mg/2 Ml Vial) 4 mg IVPUSH Q8H PRN PRN Reason: Nausea and Vomiting Pharmacy Consult (Consult Rx Perform Med Rec) 1 each MISCELLANE ONCE PRN PRN Reason: Consult order Sodium Chloride (0.9 % Sodium Chloride Flush 3 Ml Syringe) 3 ml IVFLUSH QSHIFT [facility] Last Admin: 12/22/20 08:22 Dose: Not Given Documented by: TONNY Non-Admin Reason: IV Running Labs CBC & Chem 7: 12/22/20 04:00 12/22/20 04:01 Labs: Laboratory Results - last 24 hr 12/21/20 12/21/20 12/22/20 15:54 20:28 04:00 MCV 82.2 MCH 26.9 L MCHC 32.8 RDW 13.3 Plt Count 257 MPV 9.2 L Absolute Nucleated RBC 0.000 Nucleated RBC % (auto) 0.0 Anion Gap Estim Creat Clear Calc Estimated GFR POC Glucose 139 H 125 H Random Glucose Calcium C-Reactive Protein Vancomycin Trough 12/22/20 12/22/20 12/22/20 04:01 04:01 07:09 MCV MCH MCHC RDW Plt Count MPV Absolute Nucleated RBC Nucleated RBC % (auto) Anion Gap 10 L Estim Creat Clear Calc 150.6 Estimated GFR > 60 POC Glucose 84 Random Glucose 90 Calcium 7.7 L D C-Reactive Protein 1.97 H Vancomycin Trough 7.5 L 12/22/20 11:20 MCV MCH MCHC RDW Plt Count MPV Absolute Nucleated RBC Nucleated RBC % (auto) Anion Gap Estim Creat Clear Calc Estimated GFR POC Glucose 125 H Random Glucose Calcium C-Reactive Protein Vancomycin Trough Impressions Duplex Scan Lower Extremity Artery 12/21/20 10:30 IMPRESSION: There is no evidence of any hemodynamically significant lower extremity arterial disease by duplex Doppler criteria at rest. Microbiology Microbiology Results: Microbiology 12/20/20 11:23 Blood Culture - Preliminary Blood - Venous No growth after 24 hours. 12/20/20 11:20 Blood Culture - Preliminary Blood - Venous No growth after 24 hours. Assessment and Plan (1) Diabetic osteomyelitis: Status: Acute Assessment and Plan: hospital d#3 45yo M with insulin-dependent DM2 presenting with nearly 4 weeks of worsening ulcer on dorsum of R 3rd toe, found to have osteomyelitis # DM osteomyelitis - on vanc + pip/zen d#3; follow BCx - Gen Surg consulted; good ABX candidate - ID consult pending. likely if no MRSA will give ertapenem for total 6 wk. will order PICC # DM2, A1c 8.7 - basal/bolus insulin # HTN - started on lisinopril # HLD - statin # VTE ppx - LMWH # dispo - home with VNA tomorrow once home infusion arranged Quality Stroke Does the patient have a stroke diagnosis?: No VTE Prior VTE?: No VTE Risk Level:: Medical - moderate - high VTE Device Contraindication: N/A - Device Ordered VTE Drug Contraindication: N/A - Med Ordered
--- NOTE | 2020-12-22 12:55 | HE.PHANOTE ---
Increased to 1000 mg q8 next trough 12/23 @0500, predicted auc 443, trough 9.1, may need to increase to 1250 mg q8h
[2020-12-22] MEDS: vancomycin HCL 1,000 MG in 0.9 % Sodium Chloride 250 ML 270 MG IV (12:59)
--- NOTE | 2020-12-22 14:17 | MHC.CM.PN ---
Addendum entered by Jane Phipps 12/22/20 16:25: Flush orders and script have been sent. PICC line insertion is in progress. [facility] will need PICC info sent via [employer]. [facility] is aware of dc tomorrow. Pt needs 1st dose of ertapenum here. [facility] completed virtual teach. Pt did well. Original Note: Male 45 DX DM foot infection He is independent with all functional mobility. He lives with his and kids. DP home with IV ABX [facility] has been referred. Patient preferences obtained for [facility]NA. Referral has been sent. PICC line insertion is pending. The patient has been seen by ID. Waiting on documentation for final medication. CM will follow.
[2020-12-22] MEDS: 0.9 % Sodium Chloride Flush 3 ML SYRINGE IVFLUSH ×2 (18:40→21:18)
[2020-12-22 18:41] VITALS: BP 158/85; PULSE 105; RESP 20; TEMP 36.6; O2SAT 94
--- NOTE | 2020-12-22 18:50 | P.PICC_ITS ---
PICC Line Insertion NPICC Diagnosis: [Right Foot Wound] Indication: [computer support specialist antibiotics] Pertinent Labs: [reviewed] Technique: Following informed consent including risks, benefits and alternatives and using sterile technique including cap and mask, sterile gown, glove and drape, the [right] arm was prepped and draped in the usual sterile fashion of fu ll barrier technique with CHG. Following completion of [place] Protocol the skin and soft tissues were anesthetized with 1% Lidocaine plain. Using ultrasound guidance, [right basilic] vein access was obtained multiple times by this RN and right brachial vein was accessed multiple times by this RN, but unable to pass guidewire. Dr Vides accessed right basilic, brachial and cephalic veins multiple times before finally being able to pass guidewire into right cephalic vein. Over an 0.018 wire through peel-away sheath, a [4FR single lumen] PICC line was positioned. Catheter length is [41 CM] internal length, [3 CM] external length, for a total trimmed length of [44 CM]. The procedure was performed in [S272]. Tip verification was performed by Jodi James with [facility] 3CG. Tip located in SVC. Ultrasound was used to document vein patency and for needle entry. A formal ultrasound picture and cardiac rhythm strip was recorded. Vascular Director Of Industrial Relations has released the line for use and it is currently dressed with a StatLock, Tegaderm, and CHG disc. Verification has been performed for blood return and line patency. Arm Circumference: [42 CM] Equipment: [[employer] Power PICC Solo] Catheter Type: [4FR Single Lumen PICC] Lot #: [[id number]]
[2020-12-22 19:00] LABS: Glucose, Whole Blood 125 mg/dL (60-115)
[2020-12-22] MEDS: Atorvastatin Calcium 40 MG TABLET PO (21:16)
[2020-12-22] MEDS: vancomycin HCL 1,000 MG in 0.9 % Sodium Chloride 250 ML 250 MG IV (21:19)
[2020-12-22] MEDS: Insulin Glargine,Hum.rec.anlog 100 UNIT/ML 10 ML VIAL 60 UNIT SUBCUT (21:25)
[2020-12-23] VITALS: BP 175/90; PULSE 95; RESP 19; TEMP 37.1; O2SAT 95
[2020-12-23 03:11] VITALS: BP 156/88; PULSE 94; RESP 17; TEMP 37; O2SAT 95
[2020-12-23] MEDS: Piperacillin Sodium/Tazobactam 3.375 GM in 0.9 % Sodium Chloride 50 ML IV (04:11)
[2020-12-23] MEDS: vancomycin HCL 1,000 MG in 0.9 % Sodium Chloride 250 ML 250 MG IV (05:19)
[2020-12-23 05:51] LABS: Vancomycin Trough 11.3 mcg/mL (10.0-20.0)
[2020-12-23 07:40] LABS: Creatinine Clr Calc Pharmacy 143.9; Estimated Glomerular Filt Rate > 60
[2020-12-23 07:40] LABS: Glucose, Whole Blood 76 mg/dL (60-115)
[2020-12-23 08:00] VITALS: BP 145/68; PULSE 78; RESP 21; TEMP 36.8; O2SAT 97
[2020-12-23 09:49] VITALS: BP 145/68; PULSE 78
[2020-12-23] MEDS: 0.9 % Sodium Chloride Flush 3 ML SYRINGE IVFLUSH (09:49)
[2020-12-23] MEDS: lisinopriL 10 MG TABLET PO (09:49)
[2020-12-23] MEDS: Ertapenem Sodium 1 GM in 0.9 % Sodium Chloride 50 ML IV (09:49)
[2020-12-23] MEDS: 0.9 % Sodium Chloride Flush 10 ML SYRINGE 5 ML IVFLUSH (09:50)
[2020-12-23 11:21] LABS: Glucose, Whole Blood 125 mg/dL (60-115)
--- NOTE | 2020-12-23 11:30 | P.F2F_ITS ---
Service Date Service Date: 12/23/20 Encounter Date of encounter: 12/23/20 Reasons for Services Reason for care home: CV/CP assess and/or care and administration of IV, SQ, or IM injection Overseeing Care: Idris Steinberg Homebound: Leaving the home is medically contraindicated at this time without the asist of a device and/or another person due th the listed conditions above and below. Reason homebound: immunosuppression / infection risk Homebound supporting statement: needs 6 wk IV ertapenem, start date 12/20/20, end date 01/31/21 Certification: Based on the above findings, I certify that this patient is confined to the home and needs intermittent care home care, physical therapy and/or speech therapy, or continues to need occupational therapy. The patient is under my care, and I have initiated the establishment of the plan of care. The patient will be followed by a physician who will periodically review the plan of care.
[2020-12-23 11:33] VITALS: BP 135/72; PULSE 78; RESP 20; TEMP 36.9; O2SAT 98
--- NOTE | 2020-12-23 11:50 | PM.DS ---
DS: Providers Provider Date of Service: 12/23/20 Date of admission: 12/20/20 16:28 Primary care physician: Idris Steinberg MD Consults: 12/21/20 13:32 Consult to Infectious Diseases Routine Consulting Provider: Margie Bautista Reason for consultation: osteomyelitis 12/21/20 13:33 Consult to General Surgery [place]ine [place]ing [place] [facility] [place] [facility] Reason for consultation: DM osteomyelitis, R 3rd toe 12/23/20 07:56 Consult to Infectious Diseases Routine Consulting Provider: Margie Bautista Reason for consultation: ERTAPENEM FOR OUTPATIENT DS: Diagnosis Discharge Diagnosis (1) Diabetic osteomyelitis: Status: Acute (2) Type 2 diabetes mellitus with right diabetic foot infection: Status: Acute (3) Hypertension: Status: Acute DS: Summary Hospital Course Hospital Course: from my admission H+P, 12/20/20: 45yo M with DM2, dependent on insulin, with neuropathy, presenting with 3-4 weeks of worsening ulcer on dorsum of R 3rd toe.? He had amputation of the tip of the R 1st toe in the past due to waterborne infection.? No trauma to the 3rd toe.? He saw a doctor a few weeks ago and was supposed to get antibiotics but says he never got a prescription at the pharmacy.? The toe started swelling a few days ago and he became concerned. No fever/chills.? No pain, though as noted above, he is neuropathic.? No nausea/vomiting. This 45yo M with insulin-dependent DM2 presenting with nearly 4 weeks of worsening ulcer on dorsum of R 3rd toe was found to have osteomyelitis on MRI. He was not bacteremic. Surgery was consulted and he is a good candidate for long-term antibiotics to avoid amputation. ID was consulted. He was changed from vancomycin/piperacillin-tazobactam to ertapenem. He will need 6 weeks' total and a PICC was placed. He was discharged home with VNA services. He was started on lisinopril for hypertension and prevention of diabetic nephropathy. He should follow up with ID and Primary Care in 1-2 weeks. Weekly labs while on ertapenem: CBCd, BMP, ESR, CRP. Last date of antibiotics will be 01/31/21. Time Spent with Patient Time attestation: Total time spent providing and/or coordinating discharge services: Discharge coordination time: Greater than 30 minutes Quality: Stroke Does the patient have a stroke diagnosis?: No Physical Exam Vital Signs: Vital Signs: Last Vital Signs Temp 98.5 F 12/23/20 11:33 Pulse 78 12/23/20 11:33 Resp 20 12/23/20 11:33 BP 135/72 12/23/20 11:33 Pulse Ox 98 12/23/20 11:33 Body Mass Index 43.0 Gen: in no acute distress HEENT: sclera anicteric, moist mucus membranes Neck: supple Lungs: clear to auscultation bilaterally Heart: regular rate and rhythm, no murmurs Abd: soft, non-tender, non-distended, obese Ext: prior amputation of tip of R 1st toe Skin: R 3rd toe with ulcer, dry Neuro: alert and oriented x3, no focal findings Psych: appropriate affect DS: Data Data Completed and Pending Completed studies during hospitalization [Text1]: Laboratory Results WBC 9.0 X10*3/uL (4.8-10.8) 12/22/20 04:00 RBC 5.16 X10*6/uL (4.60-5.80) 12/22/20 04:00 Hgb 13.9 g/dl (14.0-18.0) L 12/22/20 04:00 Hct 42.4 % (42.0-52.0) 12/22/20 04:00 MCV 82.2 fL (80.0-98.0) 12/22/20 04:00 MCH 26.9 pg (27.0-33.0) L 12/22/20 04:00 MCHC 32.8 g/dl (31.0-36.0) 12/22/20 04:00 RDW 13.3 % (11.0-16.0) 12/22/20 04:00 Plt Count 257 X10*3/uL (160-400) 12/22/20 04:00 MPV 9.2 fL (9.4-12.4) L 12/22/20 04:00 Immature Gran % (Auto) 0.9 % (0.0-0.4) H 12/20/20 11:23 Neut % (Auto) 64.5 % (45-73) 12/20/20 11:23 Lymph % (Auto) 23.3 % (20-40) 12/20/20 11:23 [place] % (Auto) 8.1 % (2-11) 12/20/20 11:23 Eos % (Auto) 2.7 % (0-4) 12/20/20 11:23 Baso % (Auto) 0.5 % (0-2) 12/20/20 11:23 Lymph # (Auto) 2.1 X10*3/uL (1.2-4.9) 12/20/20 11:23 [place] # (Auto) 0.7 X10*3/uL (0.1-1.2) 12/20/20 11:23 Eos # (Auto) 0.3 X10*3/uL (0.0-0.4) 12/20/20 11:23 Baso # (Auto) 0.1 X10*3/uL (0.0-0.2) 12/20/20 11:23 Abs Immat Gran (auto) 0.08 X10*3/uL (0.00-0.03) H 12/20/20 11:23 Absolute Neuts (auto) 5.9 x10*3/uL (2.0-8.3) 12/20/20 11:23 Absolute Nucleated RBC 0.000 X10*3/uL (0.0-0.012) 12/22/20 04:00 Nucleated RBC % (auto) 0.0 /100WBC (0.0-0.2) 12/22/20 04:00 ESR 63 MM/HR (0-15) H 12/20/20 11:23 Sodium 140 mmol/L (135-145) 12/22/20 04:01 Potassium 3.9 mmol/L (3.3-5.1) 12/22/20 04:01 Chloride 109 mmol/L (96-108) H 12/22/20 04:01 Carbon Dioxide 25 mmol/L (22-29) 12/22/20 04:01 Anion Gap 10 (12-20) L 12/22/20 04:01 BUN 11 mg/dL (9-16) 12/22/20 04:01 Creatinine 0.90 mg/dL (0.5-1.4) 12/23/20 07:09 Estim Creat Clear Calc 143.9 12/23/20 07:09 Estimated GFR > 60 12/23/20 07:09 POC Glucose 125 mg/dL (60-115) H 12/23/20 11:16 Random Glucose 90 mg/dL (60-115) 12/22/20 04:01 Estimat Average Glucose 203 mg/dL 12/21/20 06:53 Hemoglobin A1c % 8.7 % 12/21/20 06:53 Calcium 7.7 mg/dL (8.4-10.2) L D 12/22/20 04:01 C-Reactive Protein 1.97 mg/dL (< or = 0.50) H 12/22/20 04:01 Vancomycin Trough 11.3 mcg/mL (10.0-20.0) 12/23/20 04:46 COVID-19 (KATELYN) Negative (Negative) 12/20/20 16:20 COVID-19 Clin Com See Note 12/20/20 16:20 Impressions Foot X-Ray 12/20/20 10:39 IMPRESSION: No fracture or x-ray evidence of osteomyelitis. Absent distal phalanx of the great toe which has presumably been removed. Soft tissue swelling of the great toe and midfoot. Foot MRI 12/21/20 09:29 IMPRESSION: Acute osteomyelitis at the middle phalanx of the third toe. There is a soft tissue wound at the dorsal aspect of the third toe near the distal phalanx. Reactive marrow edema signal is present in the distal phalanx without more definitive findings of osteomyelitis. No abscess. Duplex Scan Lower Extremity Artery 12/21/20 10:30 IMPRESSION: There is no evidence of any hemodynamically significant lower extremity arterial disease by duplex Doppler criteria at rest. Discharge Plan Discharge Patient Disposition: Home Health Service Discharge Diagnosis: diabetic osteomyelitis, hypertension Referrals: Idris Steinberg MD [Primary Care Provider] - 12/27/20 11:30 am (You have a follow up appointment with Mleany Alvarado on december 27 at 11:30 am.) Margie Bautista MD [Physician] - 1 Week Discharge Medications: New lisinopril 10 mg Tablet 10 mg PO DAILY Qty: 30 RF: 0 ertapenem 1 gram recon soln 1 g IV DAILY Qty: 38 RF: 0 Continued metformin 1,000 mg tablet 1,000 mg PO DAILY 30 Days Qty: 30 RF: 3 (DME) FreeStyle Lite Strips Strip See Rx Instructions .ROUTE .MEDSUPPLY Qty: 200 RF: 4 (DME) blood-glucose meter [FreeStyle Lite Meter] Kit See Rx Instructions .ROUTE .MEDSUPPLY Qty: 1 RF: 0 glimepiride 4 mg tablet 4 mg PO DAILY 30 Days Qty: 30 RF: 3 (DME) lancets [FreeStyle Lancets] 28 gauge misc See Rx Instructions .ROUTE .MEDSUPPLY Qty: 200 RF: 4 (DME) pen needle, diabetic [BD Charissa 2nd Gen Pen Needle] 32 gauge x 5/32 needle See Rx Instructions .Route Qty: 400 RF: 3 cholecalciferol (vitamin D3) 1,250 mcg (50,000 unit) capsule 1,250 mcg PO Q28D RF: 0 Lantus Solostar U-100 Insulin 100 unit/mL (3 mL) insulin pen 60 unit subcut BEDTIME RF: 0 Trulicity 3 mg/0.5 mL pen injector 3 mg subcut WE@0900 RF: 0 Discharge Orders: Discharge Order (Routine); Ordered 12/23/20 Ordered By: Rebekah Miller Diet: diabetic diet Activity on Discharge: As tolerated Stand Alone Forms: Patient Portal Discharge page Care Plan Goals: cure of toe infection control of diabetes + its complications control of hypertension + avoidance of cardiovascular events Health Concerns: diabetic osteomyelitis diabetes hypertension Plan of Treatment: ertapenem 1 g IV daily via PICC until 01/31/[address] Bautista [Infectious Disease] in 1-2 weeks weekly labs: CBCd, BMP, ESR, CRP take diabetes meds and follow diabetic diet/exericse plan start lisinopril 10 mg daily see primary care doctor in 1 week Assessment: See Discharge Summary Patient Instructions: PICC (Peripherally Inserted Central Catheter) (DC)
--- NOTE | 2020-12-23 11:57 | MHC.CM.PN ---
Patient has been medically cleared for dc to home today with [facility] and [facility]; both [facility] and [facility] have been notified of today's dc. PICC line info and dc summary with orders have been sent to [facility] via [employer] .
--- NOTE | 2020-12-23 22:16 | W.PM.IDCN ---
History of Present Illness Data of Consult Service Date: 12/22/20 Requesting physician: Rebekah Miller Primary Care Provider: MD SHARAD Roman Reason for consult: right osteomyelitis foot He presents with right foot discomfort and swelling He has had complaints for four weeks. He has no fever and chills. Review of Systems Review of Systems: Yes all other systems are reviewed and are negative PMFSH Past Medical History Medical History Diabetes mellitus Right great toe amputee Undescended left testicle Family History Family history: reviewed and not pertinent Surgical History Surgical History Hx of tonsillectomy Social History Social History Household Members: Family Housing: Apartment Patient Tobacco Use Status: Never used Tobacco e-Cigarette/Vaping Use: Never Used Advance Directives Date on File: 12/21/20 service: No Current occupational status: disabled Meds Allergies Allergy/AdvReac Type Severity Reaction Status Date / Time barium sulfate Allergy Unknown chest pain Verified 12/19/20 10:25 No Known Allergies Allergy Verified 12/19/20 10:25 Home Medications Medication Instructions Recorded Confirmed Last Taken Type cholecalciferol (vitamin D3) 1,250 1,250 mcg PO Q28D 12/20/20 12/21/20 12/18/20 History mcg (50,000 unit) capsule dulaglutide 3 mg/0.5 mL 3 mg SUBCUT WE@0900 12/20/20 12/20/20 12/20/20 History subcutaneous pen injector (Trulicity) insulin glargine 100 unit/mL (3 60 unit SUBCUT BEDTIME 12/20/20 12/20/20 12/19/20 History mL) subcutaneous pen (Lantus Solostar U-100 Insulin) Physical Exam Vital Signs: Vital Signs: Last Vital Signs Temp 98.5 F 12/23/20 11:33 Pulse 78 12/23/20 11:33 Resp 20 12/23/20 11:33 BP 135/72 12/23/20 11:33 Pulse Ox 98 12/23/20 11:33 Body Mass Index 43.0 Const: General: cooperative Eyes: General: appearance normal, both eyes and all related structures Resp: Effort & Inspection: normal respiratory effort Cardio: Rate: regular rate Rhythm: regular rhythm GI: Palpation (GI): Soft to palpation and nontender Skin: General skin exam: no rashes or lesions noted Extrem: Other: swelling right foot Results Labs CBC & Chem 7: 12/22/20 04:00 12/23/20 07:09 Labs: BMP 12/23/20 07:09 Creatinine 0.90 Microbiology Microbiology Results: Microbiology 12/20/20 11:23 Blood - Venous Blood Culture - Preliminary No growth after 48 hours. 12/20/20 11:20 Blood - Venous Blood Culture - Preliminary No growth after 48 hours. Assessment and Plan (1) Diabetic osteomyelitis: Status: Acute He has no MRSA seen He has osteomyelitis foot Would give six weeks IV Ertapenem
== END 2020-12-23 12:49 | disposition home health service (06) | DRG 344 ==
LOC: HO.ED 14:22 → HO.EDOVER 16:38 → HO.IMC 12-21 10:00
PROVIDERS: Admitting Provider Family Medicine; Emergency Provider Emergency Medicine; PCP Internal Medicine; Visit Provider Family Medicine
DX: E11.69 Type 2 diabetes mellitus with other specified complication (principal); M86.172 Other acute osteomyelitis, left ankle and foot; E11.42 Type 2 diabetes mellitus with diabetic polyneuropathy; E11.621 Type 2 diabetes mellitus with foot ulcer; I10 Essential (primary) hypertension; E78.5 Hyperlipidemia, unspecified; L97.516 Non-pressure chronic ulcer of other part of right foot with bone involvement without evidence of necrosis; Z20.822 Contact with and (suspected) exposure to COVID-19; Z79.4 Long term (current) use of insulin; Z79.899 Other long term (current) drug therapy
CPT/HCPCS: 36415; 36573; 73620; 73720; 80048; 80202; 82565; 82947; 83036; 85025; 85027; 85652; 86140; 87040; 87635; 93925; 96361; 96365; 96375; 99285; A9585; C1751; C1894; J0295; J1335; J1650; J2543; J3370

== ENCOUNTER 2020-12-25 12:30 | Outpatient (REF) | payer OTHER, SELFPAY ==
[2020-12-25 12:37] LABS: MANUAL DIFF FLAG NO
[2020-12-25 12:41] LABS: Basophils Percent Auto 0.4 % (0-2); Eosinophils Absolute Auto 0.2 X10*3/uL (0.0-0.4); Eosinophils Percent Auto 2.4 % (0-4); Hematocrit 40.2 % (42.0-52.0); Hemoglobin 12.8 g/dl (14.0-18.0); Imm Gran Abs Auto 0.07 X10*3/uL (0.00-0.03); Imm Gran Pct Auto 0.7 % (0.0-0.4); Lymphocytes Absolute Auto 2.1 X10*3/uL (1.2-4.9); Lymphocytes Percent Auto 21.8 % (20-40); Mean Corpuscular HGB Conc 31.8 g/dl (31.0-36.0); Mean Corpuscular Hemoglobin 26.9 pg (27.0-33.0); Mean Corpuscular Volume 84.5 fL (80.0-98.0); Mean Platelet Volume 10.2 fL (9.4-12.4); Monocytes Absolute Auto 0.8 X10*3/uL (0.1-1.2); Monocytes Percent Auto 8.2 % (2-11); Neutrophils Absolute Auto 6.4 x10*3/uL (2.0-8.3); Neutrophils Percent Auto 66.5 % (45-73); Platelet Count 279 X10*3/uL (160-400); Red Blood Count 4.76 X10*6/uL (4.60-5.80); Red Cell Distribution Width 13.3 % (11.0-16.0); White Blood Count 9.6 X10*3/uL (4.8-10.8)
[2020-12-25 13:04] LABS: Anion Gap 13 (12-20); Blood Urea Nitrogen 12 mg/dL (9-16); C Reactive Protein 2.07 mg/dL (< or = 0.50); Calcium 8.3 mg/dL (8.4-10.2); Carbon Dioxide 27 mmol/L (22-29); Chloride 109 mmol/L (96-108); Estimated Glomerular Filt Rate > 60; Glucose Random 70 mg/dL (60-115); Potassium 3.9 mmol/L (3.3-5.1); Sodium 145 mmol/L (135-145)
[2020-12-25 13:27] LABS: Erythrocyte Sedimentation Rate 63 MM/HR (0-15)
== END 2020-12-25 12:31 | disposition home or self-care (01) ==
LOC: HO.HVNA 12:30
PROVIDERS: Visit Provider Internal Medicine
DX: E11.69 Type 2 diabetes mellitus with other specified complication (principal)
CPT/HCPCS: 36415; 80048; 85025; 85652; 86140

== ENCOUNTER → 2021-01-01 10:38 | Outpatient (BNVA) | payer OTHER, SELFPAY | PROVIDERS: PCP Hospitalist; Visit Provider Internal Medicine | DX: M86.9 Osteomyelitis, unspecified (principal); E11.69 Type 2 diabetes mellitus with other specified complication | CPT/HCPCS: 99212 ==

== ENCOUNTER 2021-01-01 14:10 | Outpatient (REF) | payer OTHER, SELFPAY ==
[2021-01-01 14:14] LABS: MANUAL DIFF FLAG NO
[2021-01-01 14:24] LABS: Basophils Absolute Auto 0.1 X10*3/uL (0.0-0.2); Basophils Percent Auto 0.6 % (0-2); Eosinophils Absolute Auto 0.2 X10*3/uL (0.0-0.4); Eosinophils Percent Auto 2.4 % (0-4); Hematocrit 40.2 % (42.0-52.0); Imm Gran Abs Auto 0.02 X10*3/uL (0.00-0.03); Imm Gran Pct Auto 0.2 % (0.0-0.4); Lymphocytes Percent Auto 20.9 % (20-40); Mean Corpuscular HGB Conc 32.3 g/dl (31.0-36.0); Mean Corpuscular Volume 83.6 fL (80.0-98.0); Mean Platelet Volume 10.4 fL (9.4-12.4); Monocytes Absolute Auto 0.7 X10*3/uL (0.1-1.2); Monocytes Percent Auto 7.6 % (2-11); Neutrophils Absolute Auto 6.4 x10*3/uL (2.0-8.3); Neutrophils Percent Auto 68.3 % (45-73); Platelet Count 287 X10*3/uL (160-400); Red Blood Count 4.81 X10*6/uL (4.60-5.80); Red Cell Distribution Width 13.1 % (11.0-16.0); White Blood Count 9.3 X10*3/uL (4.8-10.8)
[2021-01-01 15:05] LABS: Anion Gap 10 (12-20); Blood Urea Nitrogen 14 mg/dL (9-16); C Reactive Protein 1.01 mg/dL (< or = 0.50); Calcium 8.3 mg/dL (8.4-10.2); Carbon Dioxide 29 mmol/L (22-29); Chloride 107 mmol/L (96-108); Estimated Glomerular Filt Rate > 60; Glucose Random 108 mg/dL (60-115); Potassium 4.2 mmol/L (3.3-5.1); Sodium 142 mmol/L (135-145)
[2021-01-01 15:19] LABS: Erythrocyte Sedimentation Rate 38 MM/HR (0-15)
== END 2021-01-01 14:11 | disposition home or self-care (01) ==
LOC: HO.HVNA 14:10
PROVIDERS: Visit Provider Internal Medicine
DX: E11.69 Type 2 diabetes mellitus with other specified complication (principal); Z79.2 Long term (current) use of antibiotics
CPT/HCPCS: 36415; 80048; 85025; 85652; 86140

== ENCOUNTER 2021-01-08 12:29 | Outpatient (REF) | payer OTHER, SELFPAY ==
[2021-01-08 12:34] LABS: MANUAL DIFF FLAG NO
[2021-01-08 12:44] LABS: Basophils Absolute Auto 0.1 X10*3/uL (0.0-0.2); Basophils Percent Auto 0.6 % (0-2); Eosinophils Absolute Auto 0.1 X10*3/uL (0.0-0.4); Eosinophils Percent Auto 1.7 % (0-4); Hematocrit 40.9 % (42.0-52.0); Imm Gran Abs Auto 0.03 X10*3/uL (0.00-0.03); Imm Gran Pct Auto 0.4 % (0.0-0.4); Lymphocytes Absolute Auto 1.6 X10*3/uL (1.2-4.9); Lymphocytes Percent Auto 19.7 % (20-40); Mean Corpuscular HGB Conc 31.8 g/dl (31.0-36.0); Mean Corpuscular Hemoglobin 27.3 pg (27.0-33.0); Mean Corpuscular Volume 85.7 fL (80.0-98.0); Mean Platelet Volume 10.6 fL (9.4-12.4); Monocytes Absolute Auto 0.5 X10*3/uL (0.1-1.2); Monocytes Percent Auto 6.5 % (2-11); Neutrophils Absolute Auto 5.9 x10*3/uL (2.0-8.3); Neutrophils Percent Auto 71.1 % (45-73); Platelet Count 245 X10*3/uL (160-400); Red Blood Count 4.77 X10*6/uL (4.60-5.80); Red Cell Distribution Width 13.3 % (11.0-16.0); White Blood Count 8.3 X10*3/uL (4.8-10.8)
[2021-01-08 13:28] LABS: Anion Gap 12 (12-20); Blood Urea Nitrogen 14 mg/dL (9-16); C Reactive Protein 0.43 mg/dL (< or = 0.50); Calcium 8.2 mg/dL (8.4-10.2); Carbon Dioxide 29 mmol/L (22-29); Chloride 107 mmol/L (96-108); Estimated Glomerular Filt Rate > 60; Glucose Random 195 mg/dL (60-115); Potassium 4.1 mmol/L (3.3-5.1); Sodium 144 mmol/L (135-145)
[2021-01-08 13:33] LABS: Erythrocyte Sedimentation Rate 25 MM/HR (0-15)
== END 2021-01-08 12:30 | disposition home or self-care (01) ==
LOC: HO.HVNA 12:29
PROVIDERS: Visit Provider Internal Medicine
DX: E11.621 Type 2 diabetes mellitus with foot ulcer (principal); M86.171 Other acute osteomyelitis, right ankle and foot; Z79.2 Long term (current) use of antibiotics
CPT/HCPCS: 36415; 80048; 85025; 85652; 86140

== ENCOUNTER 2021-01-15 12:01 | Outpatient (REF) | payer OTHER, SELFPAY ==
[2021-01-15 12:05] LABS: MANUAL DIFF FLAG NO
[2021-01-15 12:08] LABS: Basophils Absolute Auto 0.1 X10*3/uL (0.0-0.2); Basophils Percent Auto 0.7 % (0-2); Eosinophils Absolute Auto 0.3 X10*3/uL (0.0-0.4); Eosinophils Percent Auto 2.9 % (0-4); Hematocrit 39.5 % (42.0-52.0); Hemoglobin 12.4 g/dl (14.0-18.0); Imm Gran Abs Auto 0.04 X10*3/uL (0.00-0.03); Imm Gran Pct Auto 0.5 % (0.0-0.4); Lymphocytes Absolute Auto 1.3 X10*3/uL (1.2-4.9); Lymphocytes Percent Auto 15.5 % (20-40); Mean Corpuscular HGB Conc 31.4 g/dl (31.0-36.0); Mean Corpuscular Hemoglobin 26.8 pg (27.0-33.0); Mean Corpuscular Volume 85.3 fL (80.0-98.0); Mean Platelet Volume 10.7 fL (9.4-12.4); Monocytes Absolute Auto 0.6 X10*3/uL (0.1-1.2); Monocytes Percent Auto 7.3 % (2-11); Neutrophils Absolute Auto 6.3 x10*3/uL (2.0-8.3); Neutrophils Percent Auto 73.1 % (45-73); Platelet Count 214 X10*3/uL (160-400); Red Blood Count 4.63 X10*6/uL (4.60-5.80); Red Cell Distribution Width 13.5 % (11.0-16.0); White Blood Count 8.6 X10*3/uL (4.8-10.8)
[2021-01-15 12:54] LABS: Erythrocyte Sedimentation Rate 27 MM/HR (0-15)
[2021-01-15 13:18] LABS: Anion Gap 10 (12-20); Blood Urea Nitrogen 13 mg/dL (9-16); C Reactive Protein 1.45 mg/dL (< or = 0.50); Calcium 8.1 mg/dL (8.4-10.2); Carbon Dioxide 31 mmol/L (22-29); Chloride 107 mmol/L (96-108); Estimated Glomerular Filt Rate > 60; Glucose Random 163 mg/dL (60-115); Potassium 3.7 mmol/L (3.3-5.1); Sodium 144 mmol/L (135-145)
== END 2021-01-15 12:02 | disposition home or self-care (01) ==
LOC: HO.HVNA 12:01
PROVIDERS: Visit Provider Internal Medicine
DX: M86.171 Other acute osteomyelitis, right ankle and foot (principal); Z79.2 Long term (current) use of antibiotics
CPT/HCPCS: 36415; 80048; 85025; 85652; 86140

== ENCOUNTER 2021-01-22 10:22 | Inpatient (IN) | payer OTHER, SELFPAY ==
--- NOTE | ~2021-01-22 | XR_ITS ---
EXAMINATION: XR CHEST CLINICAL INFORMATION: Shortness of breath and hypoxia COMPARISON: None TECHNIQUE: 2 views of the chest were obtained. FINDINGS: The lungs are hypoexpanded with increased pulmonary vascularity suggestive mild congestion. There is platelike atelectasis in bilateral mid lung region. No gross bony abnormality. XR/XR chest 2V IMPRESSION: Bilateral increased pulmonary vascularity suggestive of congestion.
[2021-01-22 12:01] VITALS: BP 231/92; PULSE 100; RESP 24; TEMP 36.8; O2SAT 86; BMI 44.1
[2021-01-22 12:11] VITALS: O2SAT 98
--- NOTE | 2021-01-22 14:12 | ED_ITS ---
HPI - General Adult General Chief complaint: Allergic Reaction Stated complaint: picc line complication ? Time Seen by Provider: 01/22/21 14:11 Source: patient Mode of arrival: ambulatory Limitations: no limitations History of Present Illness HPI narrative: patient complains of swelling of face and lethargy. patient is concerned that this is secondary to the antibiotics he is receiving for his osteomyelitis. Onset (ago): week(s) Severity: mild Associated symptoms: confusion, malaise and other (swelling) Related Data Home Medications Medication Instructions Recorded Confirmed cholecalciferol (vitamin D3) 1,250 1,250 mcg PO Q14D 12/20/20 02/07/21 mcg (50,000 unit) capsule dulaglutide 3 mg/0.5 mL 3 mg SUBCUT WE@0900 12/20/20 02/07/21 subcutaneous pen injector (Trulicity) insulin glargine 100 unit/mL (3 60 unit SUBCUT BEDTIME 12/20/20 02/07/21 mL) subcutaneous pen (Lantus Solostar U-100 Insulin) atorvastatin 40 mg tablet 1 tab PO BEDTIME 01/22/21 02/07/21 insulin aspart U-100 100 unit/mL See Protocol SUBCUT TIDAC 01/22/21 02/07/21 (3 mL) subcutaneous pen (Novolog Flexpen U-100 Insulin aspart) Previous Rx's Medication Instructions Recorded blood sugar diagnostic (FreeStyle #200 ea 11/21/20 Lite Strips) glimepiride 4 mg tablet 4 mg PO DAILY 30 Days #30 tab 11/21/20 metformin 1,000 mg tablet 1,000 mg PO DAILY 30 Days #30 tab 11/21/20 ertapenem 1 gram solution for 1 g IV DAILY #38 vial 12/23/20 injection bumetanide 2 mg tablet 2 mg PO DAILY #30 tab 01/25/21 carvedilol 3.125 mg tablet 3.125 mg PO BID #60 tab 01/25/21 spironolactone 25 mg tablet 25 mg PO DAILY #30 tab 01/25/21 blood pressure kit-extra large #1 ea 02/05/21 lancets 28 gauge (FreeStyle #200 ea 02/05/21 Lancets) sacubitril 24 mg-valsartan 26 mg 1 tab PO BID #60 tab 02/07/21 tablet (Entresto) blood-glucose meter (FreeStyle 1 ea MISCELLANEOUS BID #1 kit 02/08/21 Lite Meter) Allergies Allergy/AdvReac Type Severity Reaction Status Date / Time barium sulfate Allergy Unknown chest pain Verified 02/07/21 14:12 Review of Systems Constitutional: Constitutional: Reports no additional constitutional complaints Eyes: Eyes: Reports no additional eye complaints ENT: Denies dizziness Cardiovascular: Cardiovascular: Reports no additional cardiovascular complaints Respiratory: Respiratory: Reports as per HPI Gastrointestinal: Gastrointestinal: Reports no additional gastrointestinal complaints Musculoskeletal: Musculoskeletal: Reports no additional musculoskeletal complaints Integumentary/Breasts: Skin/Breast: Denies rash Neurologic: Reports system reviewed and no additional complaints, except as documented, Denies dizziness and Denies Sensory deficit (Neuro) Psychiatric: Psychiatric: Denies anxiety [facility] Past Medical History Medical History (Updated 02/07/21 @ 15:26 by RAMIRO Boo) Cardiomyopathy Diabetes mellitus Hypertension Right great toe amputee Undescended left testicle Surgical History Hx of tonsillectomy Family History Family History Other Diabetes mellitus Social History Social History Household Members: Family Housing: Apartment Do you presently have visiting nurse or other home services: Yes Patient Tobacco Use Status: Never used Tobacco e-Cigarette/Vaping Use: Never Used Advance Directives Date on File: 12/21/20 service: No Current occupational status: disabled Physical Exam Vital Signs: Vital Signs: Last Vital Signs Temp 97.9 F 01/25/21 12:00 Pulse 91 01/25/21 12:00 Resp 20 01/25/21 12:00 BP 147/71 H 01/25/21 12:00 Pulse Ox 96 01/25/21 12:00 BMI result Body Mass Index 44.1 Const: Other: chronically ill short of breath Nutritional Appearance: obese Orientation/consciousness: oriented to person and patient oriented x3 Limitations: no limitations HENMT: Head: Yes normal to inspection Ears: external ears normal General nose exam: Normal external nose present Mouth: Normal oral and palatal mucosa present and oropharynx normal Throat: Yes posterior oropharynx normal Eyes: General: appearance normal, both eyes and all related structures Neck: Other: supple Neck: Yes normal visual inspection Chest: Chest palpation & inspection: normal inspection of the chest Resp: Other: left sided rales, decreased BS on right Cardio: Jugular venous distension: no JVD Rate: regular rate Rhythm: regular rhythm Heart sounds: S1 normal heart sound present and S2 normal heart sound present GI: Inspection: Yes normal to inspection Palpation (GI): Soft to palpation, nontender and No hepatosplenomegaly present Auscultation: normal bowel sounds : General: Yes no CVA tenderness Back/Spine/Pelvis: Back: no CVA tenderness Skin: General skin exam: no rashes or lesions noted Neuro: General: oriented to person and patient oriented x3 Cranial nerves: Yes CN's II-XII intact bilaterally Motor exam (neuro): 5/5 motor strength present throughout Sensory Exam: No Sensory deficit (Neuro) Extrem: Other: 3+ edema bilaterally Psych: Appearance: grossly normal Course Reevaluation(s) Reevaluation #1: patient with worsening edema diffusely, edema in his lungs, elevated troponin will admit Time: 16:57 Medical Decision Making Lab Data Result diagrams: 01/23/21 06:05 01/25/21 10:40 Labs: Lab Results 01/22/21 01/22/21 01/22/21 Range/Units 16:06 16:06 16:06 WBC 7.5 (4.8-10.8) X10*3/uL RBC 5.25 (4.60-5.80) X10*6/uL Hgb 13.9 L (14.0-18.0) g/dl Hct 44.4 (42.0-52.0) % MCV 84.6 (80.0-98.0) fL MCH 26.5 L (27.0-33.0) pg MCHC 31.3 (31.0-36.0) g/dl RDW 13.6 (11.0-16.0) % Plt Count 245 (160-400) X10*3/uL MPV 10.1 (9.4-12.4) fL Immature Gran % (Auto) 0.4 (0.0-0.4) % Neut % (Auto) 63.7 (45-73) % Lymph % (Auto) 19.9 L (20-40) % [place] % (Auto) 11.9 H (2-11) % Eos % (Auto) 3.2 (0-4) % Baso % (Auto) 0.9 (0-2) % Lymph # (Auto) 1.5 (1.2-4.9) X10*3/uL [place] # (Auto) 0.9 (0.1-1.2) X10*3/uL Eos # (Auto) 0.2 (0.0-0.4) X10*3/uL Baso # (Auto) 0.1 (0.0-0.2) X10*3/uL Abs Immat Gran (auto) 0.03 (0.00-0.03) X10*3/uL Absolute Neuts (auto) 4.8 (2.0-8.3) x10*3/uL Absolute Nucleated RBC 0.000 (0.0-0.012) X10*3/uL Nucleated RBC % (auto) 0.0 (0.0-0.2) /100WBC Sodium 144 (135-145) mmol/L Potassium 3.4 (3.3-5.1) mmol/L Chloride 105 (96-108) mmol/L Carbon Dioxide 32 H (22-29) mmol/L Anion Gap 10 L (12-20) BUN 8 L (9-16) mg/dL Creatinine 1.02 (0.5-1.4) mg/dL Estim Creat Clear Calc 140.6 Estimated GFR > 60 Random Glucose 129 H (60-115) mg/dL Calcium 8.4 (8.4-10.2) mg/dL Total Bilirubin 0.7 (0.0-1.0) mg/dL Direct Bilirubin 0.2 (0.0-0.5) mg/dL AST 43 H D (5-37) U/L ALT 44 H (0-40) U/L Alkaline Phosphatase 114 D (39-117) U/L Troponin I High Sens 59.3 H (<3.5-35.0) ng/L B-Natriuretic Peptide (<100) pg/mL Total Protein 5.6 L (6.5-8.0) g/dL Albumin 2.8 L (3.5-5.0) g/dL 01/22/ Range/Units 16:06 WBC (4.8-10.8) X10*3/uL RBC (4.60-5.80) X10*6/uL Hgb (14.0-18.0) g/dl Hct (42.0-52.0) % MCV (80.0-98.0) fL MCH (27.0-33.0) pg MCHC (31.0-36.0) g/dl RDW (11.0-16.0) % Plt Count (160-400) X10*3/uL MPV (9.4-12.4) fL Immature Gran % (Auto) (0.0-0.4) % Neut % (Auto) (45-73) % Lymph % (Auto) (20-40) % [place] % (Auto) (2-11) % Eos % (Auto) (0-4) % Baso % (Auto) (0-2) % Lymph # (Auto) (1.2-4.9) X10*3/uL [place] # (Auto) (0.1-1.2) X10*3/uL Eos # (Auto) (0.0-0.4) X10*3/uL Baso # (Auto) (0.0-0.2) X10*3/uL Abs Immat Gran (auto) (0.00-0.03) X10*3/uL Absolute Neuts (auto) (2.0-8.3) x10*3/uL Absolute Nucleated RBC (0.0-0.012) X10*3/uL Nucleated RBC % (auto) (0.0-0.2) /100WBC Sodium (135-145) mmol/L Potassium (3.3-5.1) mmol/L Chloride (96-108) mmol/L Carbon Dioxide (22-29) mmol/L Anion Gap (12-20) BUN (9-16) mg/dL Creatinine (0.5-1.4) mg/dL Estim Creat Clear Calc Estimated GFR Random Glucose (60-115) mg/dL Calcium (8.4-10.2) mg/dL Total Bilirubin (0.0-1.0) mg/dL Direct Bilirubin (0.0-0.5) mg/dL AST (5-37) U/L ALT (0-40) U/L Alkaline Phosphatase (39-117) U/L Troponin I High Sens (<3.5-35.0) ng/L B-Natriuretic Peptide 284 H (<100) pg/mL Total Protein (6.5-8.0) g/dL Albumin (3.5-5.0) g/dL Imaging Data Chest x-ray: Radiologist's impression: FINDINGS: The lungs are hypoexpanded with increased pulmonary vascularity suggestive mild congestion. There is platelike atelectasis in bilateral mid lung region. No gross bony abnormality. XR/XR chest 2V IMPRESSION: Bilateral increased pulmonary vascularity suggestive of congestion. ECG Data Attestation: I personally reviewed and interpreted this ECG as follows: Interpretation: sinus 95, no st or twave changes Discharge Plan Discharge Clinical Impression: Elevated troponin Congestive heart failure (CHF) Qualifiers: Heart failure type: combined systolic and diastolic Heart failure chronicity: acute Qualified Code(s): I50.41 - Acute combined systolic (congestive) and diastolic (congestive) heart failure Patient Disposition: Admitted As Inpatient Interventions: Admission Worksheet (ED) Last Done: 01/22/21 22:36 Discharge Date/Time: 01/22/21 22:36
--- NOTE | 2021-01-22 14:20 | ECG_ITS ---
Test Reason : ALLERGIC REACTION Blood Pressure : / mmHG Vent. Rate : 097 BPM Atrial Rate : 097 BPM P-R Int : 140 ms QRS Dur : 098 ms QT Int : 368 ms P-R-T Axes : 024 012 068 degrees QTc Int : 467 ms Sinus rhythm with Premature atrial complexes Nonspecific T wave abnormality Abnormal ECG No previous ECGs available Referred By: Kadeem Limon Electronically Signed By:NICOLLE JUAREZ MD
[2021-01-22] MEDS: Furosemide 20 MG/2 ML VIAL IVPUSH ×2 (15:10→18:21)
[2021-01-22 16:12] LABS: MANUAL DIFF FLAG NO
[2021-01-22 16:13] LABS: Basophils Absolute Auto 0.1 X10*3/uL (0.0-0.2); Basophils Percent Auto 0.9 % (0-2); Eosinophils Absolute Auto 0.2 X10*3/uL (0.0-0.4); Eosinophils Percent Auto 3.2 % (0-4); Hematocrit 44.4 % (42.0-52.0); Hemoglobin 13.9 g/dl (14.0-18.0); Imm Gran Abs Auto 0.03 X10*3/uL (0.00-0.03); Imm Gran Pct Auto 0.4 % (0.0-0.4); Lymphocytes Absolute Auto 1.5 X10*3/uL (1.2-4.9); Lymphocytes Percent Auto 19.9 % (20-40); Mean Corpuscular HGB Conc 31.3 g/dl (31.0-36.0); Mean Corpuscular Hemoglobin 26.5 pg (27.0-33.0); Mean Corpuscular Volume 84.6 fL (80.0-98.0); Mean Platelet Volume 10.1 fL (9.4-12.4); Monocytes Absolute Auto 0.9 X10*3/uL (0.1-1.2); Monocytes Percent Auto 11.9 % (2-11); Neutrophils Absolute Auto 4.8 x10*3/uL (2.0-8.3); Neutrophils Percent Auto 63.7 % (45-73); Platelet Count 245 X10*3/uL (160-400); Red Blood Count 5.25 X10*6/uL (4.60-5.80); Red Cell Distribution Width 13.6 % (11.0-16.0); White Blood Count 7.5 X10*3/uL (4.8-10.8)
[2021-01-22 16:20] VITALS: BP 187/110; PULSE 96; RESP 20; O2SAT 97
[2021-01-22 16:27] LABS: Alanine Aminotransferase 44 U/L (0-40); Albumin Level 2.8 g/dL (3.5-5.0); Alkaline Phosphatase 114 U/L (39-117); Anion Gap 10 (12-20); Aspartate Amino Transferase 43 U/L (5-37); Bilirubin Direct 0.2 mg/dL (0.0-0.5); Bilirubin Total 0.7 mg/dL (0.0-1.0); Blood Urea Nitrogen 8 mg/dL (9-16); Calcium 8.4 mg/dL (8.4-10.2); Carbon Dioxide 32 mmol/L (22-29); Chloride 105 mmol/L (96-108); Creatinine Clr Calc Pharmacy 140.6; Estimated Glomerular Filt Rate > 60; Glucose Random 129 mg/dL (60-115); Potassium 3.4 mmol/L (3.3-5.1); Sodium 144 mmol/L (135-145); Total Protein 5.6 g/dL (6.5-8.0)
[2021-01-22 16:35] LABS: B Type Natriuretic Peptide 284 pg/mL (<100); Troponin-I High Sensitivity 59.3 ng/L (<3.5-35.0)
--- NOTE | 2021-01-22 17:27 | P.HPHOSP_ITS ---
History of Present Illness Date of Service: 01/22/21 Chief Complaint: Shortness of breath 45 year old man presenting with increased shortness of breath over the last week. He reported ambulating and walking up stairs he is more sob. He lives on the 4th floor. He denied chest pain, nausea, vomiting, diarrhea, fever, chills, recent illness. In the ER, chest x-ray showing bilateral increased pulmonary vascularity suggestive of congestion. BNP 284. blood pressure is elevated at 187/110, liver enzymes are also mildly elevated. He received a dose of IV Lasix 20 mg in the ER. He be admitted for further management and treatment of acute congestive heart failure. Review of Systems Verdana 4l Review of Systems: Verdana 4d Verdana 4d Denies any recent fever chills or decrease in appetite respiratory See HPI cardiovascular Denies chest pain, reports lower extremity edema gastrointestinal denies any dysphagia abdominal pain nausea vomiting or diarrhea genitourinarygenitourinary denies any dysuria frequency or hematuria musculoskeletal denies any joint pain or swelling neuropsych denies any weakness or seizures all other systems reviewed are negative [facility] Medical History Diabetes mellitus Hypertension Right great toe amputee Undescended left testicle Family History (Updated 01/22/21 @ 17:56 by Emerita Garcia NP) Other Diabetes mellitus Surgical History Hx of tonsillectomy Social History Household Members: Family Housing: Apartment Do you presently have visiting nurse or other home services: Yes Patient Tobacco Use Status: Never used Tobacco e-Cigarette/Vaping Use: Never Used Use of substances other than those prescribed or required for medical reasons: No Currently Displaying Signs/Symptoms of Drug Intoxication Withdrawal: No Have you been hit, kicked, punched, or otherwise hurt by someone within the past year? If so, by whom?: No Do you feel safe in your current relationship?: No Is there a partner from a previous relationship who is making you feel unsafe now?: No Are you made to feel afraid or neglected: No Advance Directives: Yes Advance Directives on File: Yes Advance Directives Date on File: 12/21/20 Do you have thoughts of harming others: None Do you have a plan to hurt others: No Plan Recently lost weight without trying: No How much weight loss: Not applicable Eating poorly because of decreased appetite: No Nutrition screen score: 0 Nutrition Risks: No Nutritional Risk Poor oral hygiene: No service: No Current occupational status: disabled Meds Allergies Allergy/AdvReac Type Severity Reaction Status Date / Time barium sulfate Allergy Unknown chest pain Verified 01/22/21 12:01 Active Medications: Current Medications Acetaminophen (Acetaminophen 325 Mg Tablet) 650 mg PO Q6H PRN PRN Reason: Pain, Mild (Pain Scale 1-3) Furosemide (Furosemide 20 Mg/2 Ml Vial) 20 mg IVPUSH ONCE ONE; Protocol Stop: 01/22/21 17:21 Furosemide (Furosemide 40 Mg/4 Ml Vial) 40 mg IVPUSH BID@0900,1800 KARLY; Protocol Furosemide (Furosemide 40 Mg/4 Ml Vial) 40 mg IVPUSH BID@0900,1800 KARLY; Protocol Heparin Sodium (Porcine) (Heparin Sodium,Porcine 5,000 Unit/Ml Vial) 5,000 unit SUBCUT Q12H KARLY Ondansetron HCl (Ondansetron Hcl 4 Mg/2 Ml Vial) 4 mg IVPUSH Q8H PRN PRN Reason: Nausea and Vomiting Pharmacy Consult (Consult Rx Perform Med Rec) 1 each MISCELLANE ONCE PRN PRN Reason: Consult order Sodium Chloride (0.9 % Sodium Chloride Flush 3 Ml Syringe) 3 ml IVFLUSH QSHIFT KARLY Home Medications Medication Instructions Recorded Confirmed Last Taken Type cholecalciferol 1,250 mcg PO 12/20/20 01/22/21 01/15/21 History (vitamin D3) Q14D 1,250 mcg (50,000 unit) capsule dulaglutide 3 3 mg SUBCUT 12/20/20 01/22/21 01/17/21 History mg/0.5 mL WE@0900 subcutaneous pen injector (Trulicity) insulin glargine 60 unit SUBCUT 12/20/20 01/22/21 01/21/21 History 100 unit/mL (3 BEDTIME mL) subcutaneous pen (Lantus Solostar U-100 Insulin) atorvastatin 40 1 tab PO BEDTIME 01/22/21 01/22/21 01/21/21 History mg tablet insulin aspart See Protocol 12/01/22/21 01/21/21 History U-100 100 unit/mL SUBCUT TIDAC (3 mL) subcutaneous pen (Novolog Flexpen U-100 Insulin aspart) Physical Exam Verdana 4l Vital Signs and Narrative: Verdana 4d Verdana 4d Vital Signs: Verdana 4d Verdana 4Bd Last Vital Signs Verdana 4d Registered Nurse Cardiac New 4d Registered Nurse Cardiac New 4d Temp 98.3 F 01/22/21 12:01 Registered Nurse Cardiac New 4d Pulse 96 01/22/21 16:20 Registered Nurse Cardiac NewNew 4d Resp 20 01/22/21 16:20 BP 187/110 H 01/22/21 16:20 Pulse Ox 97 01/22/21 16:20 BMI result Body Mass Index 44.1 Appearing in no acute distress head is normocephalic atraumatic eyes pupils are PERRLA sclera is anicteric mouth throat mucous membranes are intact and moist neck is supple no lymphadenopathy, no JVD noted lung sounds are clear to auscultation heart regular rate rhythm, clear S1, S2, +2 to 3 lower extremity pitting edema positive bowel sounds, abdomen is soft, nontender, obese, edematous neuro patient is alert x3, no focal deficits Results Labs CBC and Chem 7: 01/23/21 06:05 01/23/21 06:05 Labs: Laboratory Results - last 24 hr 01/22/21 01/22/21 01/22/21 16:06 16:06 16:06 MCV 84.6 MCH 26.5 L MCHC 31.3 RDW 13.6 Plt Count 245 MPV 10.1 Immature Gran % (Auto) 0.4 Neut % (Auto) 63.7 Lymph % (Auto) 19.9 L [place] % (Auto) 11.9 H Eos % (Auto) 3.2 Baso % (Auto) 0.9 Lymph # (Auto) 1.5 [place] # (Auto) 0.9 Eos # (Auto) 0.2 Baso # (Auto) 0.1 Abs Immat Gran (auto) 0.03 Absolute Neuts (auto) 4.8 Absolute Nucleated RBC 0.000 Nucleated RBC % (auto) 0.0 Anion Gap 10 L Estim Creat Clear Calc 140.6 Estimated GFR > 60 Random Glucose 129 H Calcium 8.4 Total Bilirubin 0.7 Direct Bilirubin 0.2 AST 43 H D ALT 44 H Alkaline Phosphatase 114 D Troponin I High Sens 59.3 H B-Natriuretic Peptide Total Protein 5.6 L Albumin 2.8 L 01/22/21 16:06 MCV MCH MCHC RDW Plt Count MPV Immature Gran % (Auto) Neut % (Auto) Lymph % (Auto) [place] % (Auto) Eos % (Auto) Baso % (Auto) Lymph # (Auto) [place] # (Auto) Eos # (Auto) Baso # (Auto) Abs Immat Gran (auto) Absolute Neuts (auto) Absolute Nucleated RBC Nucleated RBC % (auto) Anion Gap Estim Creat Clear Calc Estimated GFR Random Glucose Calcium Total Bilirubin Direct Bilirubin AST ALT Alkaline Phosphatase Troponin I High Sens B-Natriuretic Peptide 284 H Total Protein Albumin Imaging Radiologist's Impressions: Impressions Chest X-Ray 01/22/21 14:52 IMPRESSION: Bilateral increased pulmonary vascularity suggestive of congestion. Assessment and Plan (1) Type 2 diabetes mellitus with right diabetic foot infection: Status: Acute (2) Diabetic osteomyelitis: Status: Acute (3) Hypertension: Status: Acute (4) Congestive heart failure (CHF): Qualifiers: Heart failure chronicity: acute Heart failure type: combined systolic and diastolic Qualified Code(s): I50.41 - Acute combined systolic (congestive) and diastolic (congestive) heart failure Status: Acute 45-year-old man admitted with acute congestive heart failure Acute congestive heart failure. Dyspnea on exertion, lower extremity edema IV Lasix 40 mg twice daily Echocardiogram Cardiology consultation Follow intake and output closely Daily weights Acute hypoxic respiratory failure. Oxygen saturation 86% Placed on nasal cannula with resolution. Transaminitis. Secondary to congestion Diurese Follow LFTs Hypertension. Continue lisinopril Diabetes mellitus Sliding scale, ADA diet, continue long-acting insulin Osteomyelitis. Patient was started on IV ertapenem for osteomyelitis of right 3rd toe. Last dose 01/31/2021 Infectious disease consultation Continue IV ertapenem Obesity. BMI 44.2 Discussed importance of weight management as this may contribute to worsening of other comorbidities DVT prophylaxis with heparin Attending Dr. Cain Quality Stroke Does the patient have a stroke diagnosis?: No VTE Prior VTE?: No VTE Risk Level:: Medical - moderate - high VTE Device Contraindication: Treatment Not Indicated VTE Drug Contraindication: N/A - Med Ordered
[2021-01-22] MEDS: Nitroglycerin 2 % Oint 1 GM Packet 1 INCH TRANSDERMA (18:20)
[2021-01-22] MEDS: Heparin Sodium,Porcine 5,000 UNIT/ML VIAL 5000 UNIT SUBCUT (18:21)
--- NOTE | 2021-01-22 18:47 | PHA.MEDREC ---
Pharmacy Consult ? Medication Reconciliation Pharmacy has completed the medication reconciliation. Spoke with patient in ED. Patient knew all medications. He last took his medications yesterday.
[2021-01-22 20:44] VITALS: BP 173/109; PULSE 97; RESP 20; O2SAT 97
[2021-01-22 20:55] LABS: Glucose, Whole Blood 130 mg/dL (60-115)
[2021-01-22] MEDS: Atorvastatin Calcium 40 MG TABLET PO (21:02)
[2021-01-22] MEDS: lisinopriL 10 MG TABLET PO (21:02)
[2021-01-22 21:05] VITALS: BMI 45.6
--- NOTE | 2021-01-22 22:20 | PC.NURSE ---
Admission assessment completed by this RN. Pt Croatian speaking only, a/o x3, vague to situation. Pt denies sob, chest pain, palpitations or dizziness. DOMINIQUE noted with minimal activity, and sats 89% on 2LNC, titrated to 3L NC to maintain spo2 > 90%. Lungs diminished throughout, mild nonpitting edema noted to lower ext. On IV lasix's, urinating in urinal. Pt has osteo to right foot-3rd toe, wound open to air. Pt is on IV antibiotics at home. PICC line present to Right upper arm-patent. BP elevated, 10mg lisinopril given unscheduled, pt did not receive his morning dose. POC 130, held insulin. Pt aware of plan of care, admitted to [facility].
[2021-01-22 23:35] VITALS: BP 140/74; PULSE 104; RESP 20; TEMP 37; O2SAT 97
[2021-01-23 03:50] VITALS: BP 140/70; PULSE 69; RESP 20; TEMP 36.6; O2SAT 90
[2021-01-23 04:17] LABS: Influenza A PCR NEGATIVE (Negative); Influenza B PCR NEGATIVE (Negative); Resp Syncy Virus RNA Qual PCR NEGATIVE (Negative); SARS COV2 PCR INHOUSE NEGATIVE (Negative)
[2021-01-23] MEDS: Heparin Sodium,Porcine 5,000 UNIT/ML VIAL 5000 UNIT SUBCUT ×2 (06:10→16:49)
[2021-01-23 06:59] LABS: MANUAL DIFF FLAG NO
[2021-01-23 07:05] LABS: Basophils Absolute Auto 0.1 X10*3/uL (0.0-0.2); Basophils Percent Auto 0.7 % (0-2); Eosinophils Absolute Auto 0.3 X10*3/uL (0.0-0.4); Eosinophils Percent Auto 3.5 % (0-4); Hematocrit 40.2 % (42.0-52.0); Hemoglobin 12.6 g/dl (14.0-18.0); Imm Gran Abs Auto 0.02 X10*3/uL (0.00-0.03); Imm Gran Pct Auto 0.3 % (0.0-0.4); Lymphocytes Absolute Auto 1.4 X10*3/uL (1.2-4.9); Lymphocytes Percent Auto 18.9 % (20-40); Mean Corpuscular HGB Conc 31.3 g/dl (31.0-36.0); Mean Corpuscular Hemoglobin 26.4 pg (27.0-33.0); Mean Corpuscular Volume 84.3 fL (80.0-98.0); Mean Platelet Volume 10.5 fL (9.4-12.4); Monocytes Percent Auto 13.7 % (2-11); Neutrophils Absolute Auto 4.6 x10*3/uL (2.0-8.3); Neutrophils Percent Auto 62.9 % (45-73); Platelet Count 227 X10*3/uL (160-400); Red Blood Count 4.77 X10*6/uL (4.60-5.80); Red Cell Distribution Width 13.6 % (11.0-16.0); White Blood Count 7.4 X10*3/uL (4.8-10.8)
[2021-01-23 07:20] LABS: Anion Gap 10 (12-20); Blood Urea Nitrogen 8 mg/dL (9-16); Calcium 7.9 mg/dL (8.4-10.2); Carbon Dioxide 32 mmol/L (22-29); Chloride 105 mmol/L (96-108); Creatinine Clr Calc Pharmacy 150.5; Estimated Glomerular Filt Rate > 60; Glucose Random 140 mg/dL (60-115); Potassium 3.2 mmol/L (3.3-5.1); Sodium 144 mmol/L (135-145)
[2021-01-23 07:21] VITALS: BP 174/87; PULSE 92; RESP 20; TEMP 36.8; O2SAT 93
[2021-01-23 07:22] LABS: B Type Natriuretic Peptide 187 pg/mL (<100)
[2021-01-23 07:32] LABS: Glucose, Whole Blood 133 mg/dL (60-115)
--- NOTE | 2021-01-23 08:00 | CA_ITS ---
Transthoracic Echocardiogram Patient (Last, First, Middle): Cedrick Winter, Gender: Male Date of : 1975 Age: 45 Procedure Date: 01/23/2021 Procedure Type: Transthoracic Echocardiogram [place] [facility] [place] Height: 185.42 cm Weight: 156.49 kg BSA: 2.71 m2 Heart Rate: bpm BP: 174 / 87 mmHg Restaurant Bartender: LUIS Referring MD: Emerita Garcia NP [employer] Art Teacher: Milan Duval MD Symptoms: acute CHF Study Quality: Technically Difficult due to obesity ECG Rhythm: Sinus Conclusions: - 1. Moderate left ventricular hypertrophy with moderately reduced LV systolic function with LVEF of 35-40% with pseudonormal filling pattern 2. Limited visualization of cardiac valves with normal cardiac valvular Doppler 3. Suggestion of increased right atrial pressures 4. Small pericardial effusion more prominent along the right atrium Findings Procedure Information Contrast agent, definity, is being given per protocol without apparent complications. Left Ventricle Normal left ventricular cavity size. There is moderately increased left ventricular wall thickness. The left ventricular systolic function is moderately decreased. The visually estimated ejection fraction is between 35 40%. There is moderate global hypokinesis. Spectral Doppler is indicative of a pseudonormal filling pattern. E/E prime ratio is between 8 and 15 consistent with indeterminate filling pressures. Right Ventricle The right ventricle was not well visualized. There is normal right ventricular systolic function. Atria The left atrium is mildly dilated. Interatrial shunt cannot be excluded. The right atrium was not well visualized. Aortic Valve The aortic valve was not well visualized. There is no aortic valve stenosis. There is no aortic valve regurgitation. Mitral Valve The mitral valve was not well visualized. There is trace mitral valve regurgitation. There is no mitral valve stenosis. Pulmonic Valve The pulmonic valve was not well visualized. Tricuspid Valve The tricuspid valve was not well visualized. Tricuspid regurgitation envelope is inadequate for calculation of right ventricular systolic pressure. Mildly elevated right atrial pressure. Great Vessels The aorta was not well visualized. The pulmonary artery was not well visualized. Venous The inferior vena cava is normal in size and collapses less than 50% with inspiration. Pericardium/Pleural There is a small circumferential pericardial effusion. More prominent along the right atrium Prior Study Comparison No prior study available for comparison. Measurements 2D Linear Measurements IVSd: 1.62 0.6-0.9/0.6-1.0 cm LVIDd: 5.29 3.9-5.3/4.2-5.9 cm LVIDd Index: 1.95 2.4-3.2/2.2-3.1 cm/m2 LVIDs: 4.36 2.0-3.6 cm LVPWd: 1.57 0.7-1.1 cm Ao Root: 3.50 2.1-3.5 cm LA Diam: 4.50 2.7-3.8/3.0-4.0 cm LAIDs Index: 1.66 1.5-2.3 cm/m2 LV Mass: 480.23 67-162/88-224 g LV Mass Index: 177.21 43-95/49-115 g/m2 LVOT Diam: 2.40 3.0+(-)1.3 cm 2D Systolic Function EF 4C: 43.20 >55% EF 2C: 30.10 >55% EF BiP: 36.00 >55% Mitral Valve MV Pk E: 1.01 MV PK A: 0.56 MV Decel Time: 87.00 E/A: 1.80 E'Lateral: 7.62 E'Medial: 4.90 E/E' Med: 20.60 E/E' Lat: 13.30 PHT: 25.00 MVA PHT: 8.80 Decel [place]: 11.60 Aortic Valve AoV Pk Tian: 1.39 AoV Mn Tian: 0.99 AoV VTI: 0.25 AoV Pk Grad: 8.00 Aov Mn Grad: 5.00 MARCO Cont.VTI: 2.80 LVOT LVOT Pk Tian: 0.76 LVOT Mn Tian: 0.56 LVOT VTI: 0.15 LVOT Pk Grad: 2.00 LVOT Mn Grad: 2.00 LVOT Diam: 2.40 LVOT Area: 4.52 Diastolic Function MV Pk E: 1.01 MV Pk A: 0.56 E/A: 1.80 E'Medial: 4.90 E/E' Med: 20.60 E' Laterial: 7.62 E/E' Lat: 13.30 Tricuspid Valve TR Pk Tian: 1.77 TR Pk Grad: 13.00 RA Press: 8.00 RVSP: 21.00 Great Vessels Aorta Ao Root-2D: 3.50 2.0-3.7 cm Ao Asc: 3.70 2.1-3.4 cm Pulmonary Valve PV Pk Tian: 1.07 Peak PV Grad: 5.00 Updated in Other Vendor System with Status of Final Milan Duval MD electronically signed on 01/24/2021 8:47:59 AM with status of Final
[2021-01-23] MEDS: Potassium Chloride ER 20 MEQ TAB.ER.PRT 40 MEQ PO (08:46)
[2021-01-23] MEDS: lisinopriL 10 MG TABLET PO ×2 (08:46→16:48)
[2021-01-23] MEDS: Furosemide 40 MG/4 ML VIAL IVPUSH ×2 (08:46→16:49)
[2021-01-23] MEDS: 0.9 % Sodium Chloride Flush 3 ML SYRINGE IVFLUSH ×2 (08:47→16:49)
[2021-01-23] MEDS: Ertapenem Sodium 1 GM VIAL IV (08:47)
--- NOTE | 2021-01-23 09:18 | HO.PM.IMPN ---
Subjective Subjective Date of Service: 01/23/21 Review of Systems Follow-up acute congestive heart failure Shortness of breath has improved Ambulating with more ease ability Denies chest pain, nausea, vomiting, diarrhea All other systems reviewed and are negative Physical Exam Vital Signs: Vital Signs: Last Vital Signs Temp 98.3 F 01/23/21 07:21 Pulse 92 01/23/21 07:21 Resp 20 01/23/21 07:21 BP 174/87 H 01/23/21 07:21 Pulse Ox 93 01/23/21 07:21 BMI result Body Mass Index 45.6 Objective Data Active Medications Acetaminophen (Acetaminophen 325 Mg Tablet) 650 mg PO Q6H PRN PRN Reason: Pain, Mild (Pain Scale 1-3) Atorvastatin Calcium (Atorvastatin Calcium 40 Mg Tablet) 40 mg PO BEDTIME [facility] Last Admin: 01/22/21 21:02 Dose: 40 mg Documented by: TORSTEN Dextrose (Dextrose 50 % 25 Gm/50 Ml Vial) 25 gm IVPUSH Q15M PRN; Protocol PRN Reason: per Hypoglycemia Standing Ord. Ertapenem (Ertapenem Sodium 1 Gm Vial) 1 gm IV DAILY [facility] Last Admin: 01/23/21 08:47 Dose: 1 gm Documented by: MARC Furosemide (Furosemide 40 Mg/4 Ml Vial) 40 mg IVPUSH BID@0900,1800 [facility]; Protocol Last Admin: 01/23/21 08:46 Dose: 40 mg Documented by: MARC Glucose (Glucose Gel 15 Gm Gel..Gram.) 15 gm PO Q15M PRN; Protocol PRN Reason: per Hypoglycemia Standing Ord. Heparin Sodium (Porcine) (Heparin Sodium,Porcine 5,000 Unit/Ml Vial) 5,000 unit SUBCUT Q12H [facility] Last Admin: 01/23/21 06:10 Dose: 5,000 unit Documented by: MARIANNA Insulin Glargine (Insulin Glargine,Hum.Rec.Anlog 100 Unit/Ml 10 Ml Vial) 60 unit SUBCUT BEDTIME [facility] Last Admin: 01/22/21 20:59 Dose: Not Given Documented by: TORSTEN Non-Admin Reason: No Insulin Coverage Insulin Human Lispro (Insulin Lispro 100 Unit/Ml 3 Ml Vial) 0 unit SUBCUT QIDACHS [facility]; Protocol Last Admin: 01/23/21 08:33 Dose: Not Given Documented by: MARC Non-Admin Reason: No Insulin Coverage Lisinopril (Lisinopril 10 Mg Tablet) 10 mg PO DAILY [facility]; Protocol Last Admin: 01/23/21 08:46 Dose: 10 mg Documented by: MARC Ondansetron HCl (Ondansetron Hcl 4 Mg/2 Ml Vial) 4 mg IVPUSH Q8H PRN PRN Reason: Nausea and Vomiting Pharmacy Consult (Consult Rx Perform Med Rec) 1 each MISCELLANE ONCE PRN PRN Reason: Consult order Potassium Chloride (Potassium Chloride Er 20 Meq Tab.Er.Prt) 40 meq PO DAILY [facility] Last Admin: 01/23/21 08:46 Dose: 40 meq Documented by: MARC Sodium Chloride (0.9 % Sodium Chloride Flush 3 Ml Syringe) 3 ml IVFLUSH QSHIFT [facility] Last Admin: 01/23/21 08:47 Dose: 3 ml Documented by: MARC Labs CBC & Chem 7: 01/23/21 06:05 01/23/21 06:05 Labs: Laboratory Results - last 24 hr 01/22/21 01/22/21 01/22/21 16:06 16:06 16:06 MCV 84.6 MCH 26.5 L MCHC 31.3 RDW 13.6 Plt Count 245 MPV 10.1 Immature Gran % (Auto) 0.4 Neut % (Auto) 63.7 Lymph % (Auto) 19.9 L [place] % (Auto) 11.9 H Eos % (Auto) 3.2 Baso % (Auto) 0.9 Lymph # (Auto) 1.5 [place] # (Auto) 0.9 Eos # (Auto) 0.2 Baso # (Auto) 0.1 Abs Immat Gran (auto) 0.03 Absolute Neuts (auto) 4.8 Absolute Nucleated RBC 0.000 Nucleated RBC % (auto) 0.0 Anion Gap 10 L Estim Creat Clear Calc 140.6 Estimated GFR > 60 POC Glucose Random Glucose 129 H Calcium 8.4 Total Bilirubin 0.7 Direct Bilirubin 0.2 AST 43 H D ALT 44 H Alkaline Phosphatase 114 D Troponin I High Sens 59.3 H B-Natriuretic Peptide Total Protein 5.6 L Albumin 2.8 L Influenza Type A (PCR) Influenza Type B (PCR) RSV RNA Qual (PCR) SARS-CoV-2 RNA (RT-PCR) 01/22/21 01/22/21 01/23/21 16:06 20:51 03:30 MCV MCH MCHC RDW Plt Count MPV Immature Gran % (Auto) Neut % (Auto) Lymph % (Auto) [place] % (Auto) Eos % (Auto) Baso % (Auto) Lymph # (Auto) [place] # (Auto) Eos # (Auto) Baso # (Auto) Abs Immat Gran (auto) Absolute Neuts (auto) Absolute Nucleated RBC Nucleated RBC % (auto) Anion Gap Estim Creat Clear Calc Estimated GFR POC Glucose 130 H Random Glucose Calcium Total Bilirubin Direct Bilirubin AST ALT Alkaline Phosphatase Troponin I High Sens B-Natriuretic Peptide 284 H Total Protein Albumin Influenza Type A (PCR) NEGATIVE Influenza Type B (PCR) NEGATIVE RSV RNA Qual (PCR) NEGATIVE SARS-CoV-2 RNA (RT-PCR) NEGATIVE 01/23/21 01/23/21 01/23/21 06:05 06:05 06:05 MCV 84.3 MCH 26.4 L MCHC 31.3 RDW 13.6 Plt Count 227 MPV 10.5 Immature Gran % (Auto) 0.3 Neut % (Auto) 62.9 Lymph % (Auto) 18.9 L [place] % (Auto) 13.7 H Eos % (Auto) 3.5 Baso % (Auto) 0.7 Lymph # (Auto) 1.4 [place] # (Auto) 1.0 Eos # (Auto) 0.3 Baso # (Auto) 0.1 Abs Immat Gran (auto) 0.02 Absolute Neuts (auto) 4.6 Absolute Nucleated RBC 0.000 Nucleated RBC % (auto) 0.0 Anion Gap 10 L Estim Creat Clear Calc 150.5 Estimated GFR > 60 POC Glucose Random Glucose 140 H Calcium 7.9 L Total Bilirubin Direct Bilirubin AST ALT Alkaline Phosphatase Troponin I High Sens B-Natriuretic Peptide 187 H Total Protein Albumin Influenza Type A (PCR) Influenza Type B (PCR) RSV RNA Qual (PCR) SARS-CoV-2 RNA (RT-PCR) 01/23/21 07:20 MCV MCH MCHC RDW Plt Count MPV Immature Gran % (Auto) Neut % (Auto) Lymph % (Auto) [place] % (Auto) Eos % (Auto) Baso % (Auto) Lymph # (Auto) [place] # (Auto) Eos # (Auto) Baso # (Auto) Abs Immat Gran (auto) Absolute Neuts (auto) Absolute Nucleated RBC Nucleated RBC % (auto) Anion Gap Estim Creat Clear Calc Estimated GFR POC Glucose 133 H Random Glucose Calcium Total Bilirubin Direct Bilirubin AST ALT Alkaline Phosphatase Troponin I High Sens B-Natriuretic Peptide Total Protein Albumin Influenza Type A (PCR) Influenza Type B (PCR) RSV RNA Qual (PCR) SARS-CoV-2 RNA (RT-PCR) Assessment and Plan (1) New onset of congestive heart failure: Status: Acute (2) Diabetic osteomyelitis: Status: Acute (3) Hypertension: Status: Acute (4) Osteomyelitis: Status: Acute (5) Obesity: Status: Acute Assessment and Plan: 45-year-old man admitted with acute congestive heart failure New onset acute congestive heart failure.? Dyspnea on exertion, lower extremity edema IV Lasix 40 mg twice daily Aldactone added Echocardiogram pending Cardiology following Follow intake and output closely neg 270ml Daily weights ? Acute hypoxic respiratory failure.? Resolved Oxygen saturation 86% initally continue supplemental oxygen Transaminitis.? Secondary to congestion Diurese Follow LFTs Hypertension. Continue lisinopril Diabetes mellitus Sliding scale, ADA diet, continue long-acting insulin Osteomyelitis.? Patient was started on IV ertapenem for osteomyelitis of right 3rd toe.? Last dose 01/31/2021 Infectious disease consultation Continue IV ertapenem Morbid Obesity.? BMI 44.2 Discussed importance of weight management as this may contribute to worsening of other comorbidities DVT prophylaxis with heparin Attending Dr. Balbuena Quality Stroke Does the patient have a stroke diagnosis?: No VTE Prior VTE?: No VTE Risk Level:: Medical - moderate - high VTE Device Contraindication: Treatment Not Indicated VTE Drug Contraindication: N/A - Med Ordered
--- NOTE | 2021-01-23 09:47 | MHC.CM.PN ---
met with pt nora farris his pt had no services prior to admissionpt is not expected to require servceis when dd
--- NOTE | 2021-01-23 10:36 | PM.CNCAR ---
History of Present Illness History of Present Illness Date of Service: 01/23/21 Requesting physician: Jenniffer Hardwick Consult reason: congestive heart failure Chief complaint: CHF Narrative: I was requested to see Heladio in cardiology consultation today for symptoms of progressive shortness of breath as well as diffuse body swelling. He is a 45-year-old male with prior history of hypertension, diabetes, chronic nonhealing wound on his right toe on IV antibiotics at home. History was obtained with help of his was at bedside and no declined an [employer]. Patient says that he has been getting IV antibiotics about 2 weeks ago started noticing diffuse body swelling including leg swelling. Continues to have pain in his toe and the right foot. He also at the same time started noticing increasing shortness of breath as well as shortness of breath laying down consistent with orthopnea. Because of condition did not improve he decided to come to the emergency room yesterday on the insistence of his . He was noted to be in congestive heart failure with elevated BNP and diffuse body swelling. Patient also notices the recent time that his blood pressures been significantly uncontrolled. He also has issues with diabetes. As per the he also snore significantly and has witnessed apnea at nighttime. Has been requesting to get a sleep study done. He has had no prior cardiac issues including no history of coronary artery disease, myocardial infarction, arrhythmias, congestive heart failure. Review of Systems Constitutional: Constitutional: Reports snoring and Reports stops breathing during sleep Eyes: Eyes: Reports no additional eye complaints ENT: Reports system reviewed and no additional complaints, except as documented Cardiovascular: Cardiovascular: Reports Abdominal Distension, Denies chest pain, Reports leg edema, Reports Loss of Consciousness, Denies palpitations, Reports dyspnea on exertion and Reports orthopnea Respiratory: Respiratory: Reports no additional respiratory complaints, Reports dyspnea on exertion and Reports snoring Gastrointestinal: Gastrointestinal: Reports no additional gastrointestinal complaints Genitourinary: Genitourinary: Reports no additional male genitourinary complaints Musculoskeletal: Musculoskeletal: Reports no additional musculoskeletal complaints Integumentary/Breasts: Skin/Breast: Reports system reviewed and no additional complaints, except as docu Neurologic: Reports system reviewed and no additional complaints, except as documented Psychiatric: Psychiatric: Reports no additional psychiatric complaints Endocrine: Endocrine: Reports no additional endocrine complaints and Denies palpitations Hematologic/Lymphatic: Hematologic/Lymphatic: Reports no additional hematologic/lymphatic complaints Allergic/Immunologic: Allergic/Immunologic: Reports no additional allergic/immunologic complaints [facility] Past Medical History Medical History Diabetes mellitus Hypertension Right great toe amputee Undescended left testicle Family History Family History Other Diabetes mellitus Surgical History Surgical History Hx of tonsillectomy Social History Social History Household Members: Family Housing: Apartment Do you presently have visiting nurse or other home services: Yes Patient Tobacco Use Status: Never used Tobacco e-Cigarette/Vaping Use: Never Used Use of substances other than those prescribed or required for medical reasons: No Currently Displaying Signs/Symptoms of Drug Intoxication Withdrawal: No Have you been hit, kicked, punched, or otherwise hurt by someone within the past year? If so, by whom?: No Do you feel safe in your current relationship?: No Is there a partner from a previous relationship who is making you feel unsafe now?: No Are you made to feel afraid or neglected: No Advance Directives: Yes Advance Directives on File: Yes Advance Directives Date on File: 12/21/20 Do you have thoughts of harming others: None Do you have a plan to hurt others: No Plan Recently lost weight without trying: No How much weight loss: Not applicable Eating poorly because of decreased appetite: No Nutrition screen score: 0 Nutrition Risks: No Nutritional Risk Poor oral hygiene: No service: No Current occupational status: disabled Meds Allergies Allergy/AdvReac Type Severity Reaction Status Date / Time barium sulfate Allergy Unknown chest pain Verified 01/22/21 12:01 Active Medications: Current Medications Acetaminophen (Acetaminophen 325 Mg Tablet) 650 mg PO Q6H PRN PRN Reason: Pain, Mild (Pain Scale 1-3) Atorvastatin Calcium (Atorvastatin Calcium 40 Mg Tablet) 40 mg PO BEDTIME KARLY Last Admin: 01/22/21 21:02 Dose: 40 mg Documented by: Dextrose (Dextrose 50 % 25 Gm/50 Ml Vial) 25 gm IVPUSH Q15M PRN; Protocol PRN Reason: per Hypoglycemia Standing Ord. Ertapenem (Ertapenem Sodium 1 Gm Vial) 1 gm IV DAILY KARLY Last Admin: 01/23/21 08:47 Dose: 1 gm Documented by: Furosemide (Furosemide 40 Mg/4 Ml Vial) 40 mg IVPUSH BID@0900,1800 [facility]; Protocol Last Admin: 01/23/21 08:46 Dose: 40 mg Documented by: Glucose (Glucose Gel 15 Gm Gel..Gram.) 15 gm PO Q15M PRN; Protocol PRN Reason: per Hypoglycemia Standing Ord. Heparin Sodium (Porcine) (Heparin Sodium,Porcine 5,000 Unit/Ml Vial) 5,000 unit SUBCUT Q12H [facility] Last Admin: 01/23/21 06:10 Dose: 5,000 unit Documented by: Insulin Glargine (Insulin Glargine,Hum.Rec.Anlog 100 Unit/Ml 10 Ml Vial) 60 unit SUBCUT BEDTIME [facility] Last Admin: 01/22/21 20:59 Dose: Not Given Documented by: Insulin Human Lispro (Insulin Lispro 100 Unit/Ml 3 Ml Vial) 0 unit SUBCUT QIDACHS [facility]; Protocol Last Admin: 01/23/21 08:33 Dose: Not Given Documented by: Lisinopril (Lisinopril 10 Mg Tablet) 10 mg PO DAILY [facility]; Protocol Last Admin: 01/23/21 08:46 Dose: 10 mg Documented by: Ondansetron HCl (Ondansetron Hcl 4 Mg/2 Ml Vial) 4 mg IVPUSH Q8H PRN PRN Reason: Nausea and Vomiting Pharmacy Consult (Consult Rx Perform Med Rec) 1 each MISCELLANE ONCE PRN PRN Reason: Consult order Potassium Chloride (Potassium Chloride Er 20 Meq Tab.Er.Prt) 40 meq PO DAILY [facility] Last Admin: 01/23/21 08:46 Dose: 40 meq Documented by: Sodium Chloride (0.9 % Sodium Chloride Flush 3 Ml Syringe) 3 ml IVFLUSH QSHIFT [facility] Last Admin: 01/23/21 08:47 Dose: 3 ml Documented by: Home Medications Medication Instructions Recorded Confirmed Last Taken Type cholecalciferol (vitamin D3) 1,250 1,250 mcg PO Q14D 12/20/20 01/22/21 01/15/21 History mcg (50,000 unit) capsule dulaglutide 3 mg/0.5 mL 3 mg SUBCUT WE@0900 12/20/20 01/22/21 01/17/21 History subcutaneous pen injector (Trulicity) insulin glargine 100 unit/mL (3 60 unit SUBCUT BEDTIME 12/20/20 01/22/21 01/21/21 History mL) subcutaneous pen (Lantus Solostar U-100 Insulin) atorvastatin 40 mg tablet 1 tab PO BEDTIME 01/22/21 01/22/21 01/21/21 History insulin aspart U-100 100 unit/mL See Protocol SUBCUT TIDAC 01/22/21 01/22/21 01/21/21 History (3 mL) subcutaneous pen (Novolog Flexpen U-100 Insulin aspart) Physical Exam Vital Signs: Vital Signs: Last Vital Signs Temp 98.3 F 01/23/21 07:21 Pulse 92 01/23/21 07:21 Resp 20 01/23/21 07:21 BP 174/87 H 01/23/21 07:21 Pulse Ox 93 01/23/21 07:21 BMI result Body Mass Index 45.6 Const: General: cooperative, comfortable, no acute distress, alert, awake, poor hygiene and tired appearing Nutritional Appearance: obese morbidly obese Orientation/consciousness: patient oriented x3 HENMT: Head: Yes normocephalic and Yes atraumatic Neck: Neck: Yes trachea midline and Yes supple Resp: Effort & Inspection: normal respiratory effort Auscultation: clear to auscultation bilaterally and diminished lung sounds Cardio: Palpation: normal PMI Rate: regular rate Rhythm: regular rhythm Heart sounds: S1 normal heart sound present, S2 normal heart sound present, no click, no gallops, no murmurs and no rubs GI: Auscultation: normal bowel sounds Skin: General skin exam: no rashes or lesions noted Neuro: General: patient oriented x3 and no focal motor deficits Extrem: General: No clubbing, No cyanosis and Yes edema Psych: Appearance: grossly normal Objective Labs and Meds Result diagrams: 01/23/21 06:05 01/23/21 06:05 Lab results: Laboratory Results - last 24 hr 01/22/21 01/22/21 01/22/21 16:06 16:06 16:06 WBC 7.5 RBC 5.25 Hgb 13.9 L Hct 44.4 MCV 84.6 MCH 26.5 L MCHC 31.3 RDW 13.6 Plt Count 245 MPV 10.1 Immature Gran % (Auto) 0.4 Neut % (Auto) 63.7 Lymph % (Auto) 19.9 L Larue % (Auto) 11.9 H Eos % (Auto) 3.2 Baso % (Auto) 0.9 Lymph # (Auto) 1.5 Larue # (Auto) 0.9 Eos # (Auto) 0.2 Baso # (Auto) 0.1 Abs Immat Gran (auto) 0.03 Absolute Neuts (auto) 4.8 Absolute Nucleated RBC 0.000 Nucleated RBC % (auto) 0.0 Sodium 144 Potassium 3.4 Chloride 105 Carbon Dioxide 32 H Anion Gap 10 L BUN 8 L Creatinine 1.02 Estim Creat Clear Calc 140.6 Estimated GFR > 60 POC Glucose Random Glucose 129 H Calcium 8.4 Total Bilirubin 0.7 Direct Bilirubin 0.2 AST 43 H D ALT 44 H Alkaline Phosphatase 114 D Troponin I High Sens 59.3 H B-Natriuretic Peptide Total Protein 5.6 L Albumin 2.8 L Influenza Type A (PCR) Influenza Type B (PCR) RSV RNA Qual (PCR) SARS-CoV-2 RNA (RT-PCR) 01/22/21 01/22/21 01/23/21 16:06 20:51 03:30 WBC RBC Hgb Hct MCV MCH MCHC RDW Plt Count MPV Immature Gran % (Auto) Neut % (Auto) Lymph % (Auto) Larue % (Auto) Eos % (Auto) Baso % (Auto) Lymph # (Auto) Larue # (Auto) Eos # (Auto) Baso # (Auto) Abs Immat Gran (auto) Absolute Neuts (auto) Absolute Nucleated RBC Nucleated RBC % (auto) Sodium Potassium Chloride Carbon Dioxide Anion Gap BUN Creatinine Estim Creat Clear Calc Estimated GFR POC Glucose 130 H Random Glucose Calcium Total Bilirubin Direct Bilirubin AST ALT Alkaline Phosphatase Troponin I High Sens B-Natriuretic Peptide 284 H Total Protein Albumin Influenza Type A (PCR) NEGATIVE Influenza Type B (PCR) NEGATIVE RSV RNA Qual (PCR) NEGATIVE SARS-CoV-2 RNA (RT-PCR) NEGATIVE 01/23/21 01/23/21 01/23/21 06:05 06:05 06:05 WBC 7.4 RBC 4.77 Hgb 12.6 L Hct 40.2 L MCV 84.3 MCH 26.4 L MCHC 31.3 RDW 13.6 Plt Count 227 MPV 10.5 Immature Gran % (Auto) 0.3 Neut % (Auto) 62.9 Lymph % (Auto) 18.9 L Larue % (Auto) 13.7 H Eos % (Auto) 3.5 Baso % (Auto) 0.7 Lymph # (Auto) 1.4 Larue # (Auto) 1.0 Eos # (Auto) 0.3 Baso # (Auto) 0.1 Abs Immat Gran (auto) 0.02 Absolute Neuts (auto) 4.6 Absolute Nucleated RBC 0.000 Nucleated RBC % (auto) 0.0 Sodium 144 Potassium 3.2 L Chloride 105 Carbon Dioxide 32 H Anion Gap 10 L BUN 8 L Creatinine 0.97 Estim Creat Clear Calc 150.5 Estimated GFR > 60 POC Glucose Random Glucose 140 H Calcium 7.9 L Total Bilirubin Direct Bilirubin AST ALT Alkaline Phosphatase Troponin I High Sens B-Natriuretic Peptide 187 H Total Protein Albumin Influenza Type A (PCR) Influenza Type B (PCR) RSV RNA Qual (PCR) SARS-CoV-2 RNA (RT-PCR) 01/23/21 07:20 WBC RBC Hgb Hct MCV MCH MCHC RDW Plt Count MPV Immature Gran % (Auto) Neut % (Auto) Lymph % (Auto) Larue % (Auto) Eos % (Auto) Baso % (Auto) Lymph # (Auto) Larue # (Auto) Eos # (Auto) Baso # (Auto) Abs Immat Gran (auto) Absolute Neuts (auto) Absolute Nucleated RBC Nucleated RBC % (auto) Sodium Potassium Chloride Carbon Dioxide Anion Gap BUN Creatinine Estim Creat Clear Calc Estimated GFR POC Glucose 133 H Random Glucose Calcium Total Bilirubin Direct Bilirubin AST ALT Alkaline Phosphatase Troponin I High Sens B-Natriuretic Peptide Total Protein Albumin Influenza Type A (PCR) Influenza Type B (PCR) RSV RNA Qual (PCR) SARS-CoV-2 RNA (RT-PCR) Imaging Radiologist's impression: Impressions Chest X-Ray 01/22/21 14:52 IMPRESSION: Bilateral increased pulmonary vascularity suggestive of congestion. Assessment and Plan (1) New onset of congestive heart failure: Status: Acute New onset congestive heart failure in a middle-aged man with multiple risk factors including morbid obesity with high likelihood of underlying sleep apnea, uncontrolled hypertension, diabetes. Appears to be still fluid overloaded. Currently getting Lasix 40 mg b.i.d.. Also on lisinopril therapy. Blood pressure remains controlled. Will add Aldactone 25 mg to his regimen. Strict intake and output chart needs to be pursued. Please obtain an echocardiogram to assess LV systolic and diastolic function to evaluate for hypertensive heart disease and pulmonary hypertension. Aggressive management of diabetes. Discussed with him about heart failure and the prognosis associated with. CHF education should be provided. Outpatient require sleep study. Will continue to follow with you. Thank you for allowing us to partake in his care Procedures Date of Service Date of Service: 01/23/21
[2021-01-23 11:06] LABS: Glucose, Whole Blood 154 mg/dL (60-115)
[2021-01-23 11:28] VITALS: BP 173/108; PULSE 85; RESP 20; TEMP 36.7; O2SAT 97
[2021-01-23] MEDS: Spironolactone 25 MG TABLET PO (12:02)
[2021-01-23] MEDS: Insulin Lispro 100 UNIT/ML 3 ML VIAL SUBCUT ×2 (12:03→20:27)
[2021-01-23 15:17] VITALS: BP 176/99; PULSE 95; RESP 20; TEMP 36.5; O2SAT 94
[2021-01-23 16:16] LABS: Glucose, Whole Blood 94 mg/dL (60-115)
[2021-01-23 19:11] VITALS: BP 164/87; PULSE 92; RESP 18; TEMP 36.7; O2SAT 95
[2021-01-23 20:20] LABS: Glucose, Whole Blood 180 mg/dL (60-115)
[2021-01-23] MEDS: Atorvastatin Calcium 40 MG TABLET PO (20:26)
[2021-01-23] MEDS: Insulin Glargine,Hum.rec.anlog 100 UNIT/ML 10 ML VIAL 60 UNIT SUBCUT (20:26)
[2021-01-23 23:22] VITALS: BP 166/81; PULSE 96; RESP 19; TEMP 37.1; O2SAT 93
[2021-01-24] VITALS (10 sets, daily range): BP systolic 140–170; BP diastolic 76–90; PULSE 83–95; RESP 18–20; TEMP 36.9–37.8; O2SAT 92–98; BMI 47.9
[2021-01-24] MEDS: 0.9 % Sodium Chloride Flush 3 ML SYRINGE IVFLUSH ×3 (00:50→11:34)
[2021-01-24] MEDS: Heparin Sodium,Porcine 5,000 UNIT/ML VIAL 5000 UNIT SUBCUT ×2 (05:52→18:47)
[2021-01-24 07:29] LABS: Glucose, Whole Blood 141 mg/dL (60-115)
[2021-01-24 07:31] LABS: Anion Gap 10 (12-20); Blood Urea Nitrogen 9 mg/dL (9-16); Calcium 7.9 mg/dL (8.4-10.2); Carbon Dioxide 34 mmol/L (22-29); Chloride 103 mmol/L (96-108); Creatinine Clr Calc Pharmacy 148.6; Estimated Glomerular Filt Rate > 60; Glucose Random 162 mg/dL (60-115); Potassium 3.4 mmol/L (3.3-5.1); Sodium 144 mmol/L (135-145)
[2021-01-24 07:43] LABS: B Type Natriuretic Peptide 145 pg/mL (<100)
[2021-01-24] MEDS: Furosemide 40 MG/4 ML VIAL IVPUSH ×2 (09:49→18:47)
[2021-01-24] MEDS: lisinopriL 20 MG TABLET PO (09:49)
[2021-01-24] MEDS: Spironolactone 25 MG TABLET PO (09:50)
[2021-01-24] MEDS: Potassium Chloride ER 20 MEQ TAB.ER.PRT 40 MEQ PO (09:50)
[2021-01-24 10:55] LABS: Glucose, Whole Blood 181 mg/dL (60-115)
--- NOTE | 2021-01-24 10:55 | PM.PNCARD ---
Subjective Subjective Date of Service: 01/24/21 Principal diagnosis: Congestive heart failure Interval history: Patient is feeling better. Echocardiogram today shows moderate LV systolic dysfunction with LVEF of 35-40%. Intake and output chart shows modest diuretic response. His blood pressure is much better controlled. Review of Systems Constitutional: Reports no additional constitutional complaints Cardiovascular: Reports dyspnea on exertion Respiratory: Reports dyspnea on exertion Gastrointestinal: Reports no additional gastrointestinal complaints Genitourinary: Reports no additional male genitourinary complaints Musculoskeletal: Reports no additional musculoskeletal complaints Skin/Breast: Reports system reviewed and no additional complaints, except as docu Reports system reviewed and no additional complaints, except as documented Psychiatric: Reports no additional psychiatric complaints Physical Exam Vital Signs: Last Vital Signs Temp 98.4 F 01/24/21 10:49 Pulse 87 01/24/21 10:49 Resp 20 01/24/21 10:49 BP 140/77 H 01/24/21 10:49 Pulse Ox 95 01/24/21 10:49 BMI result Body Mass Index 47.9 Const General: cooperative, comfortable and in distress mild and respiratory Nutritional Appearance: obese Orientation/consciousness: patient oriented x3 Limitations: no limitations Neck Neck: Yes trachea midline and Yes supple Resp Effort & Inspection: normal respiratory effort Auscultation: clear to auscultation bilaterally and diminished lung sounds Cardio Palpation: normal PMI Rate: regular rate Rhythm: regular rhythm Heart sounds: S1 normal heart sound present, S2 normal heart sound present, no click, no gallops and no murmurs Skin General skin exam: no rashes or lesions noted Neuro General: patient oriented x3 Extrem General: No clubbing, No cyanosis and Yes edema Objective Labs and Meds Result diagrams: 01/23/21 06:05 01/24/21 06:08 Lab results: Laboratory Results - last 24 hr 01/23/21 01/23/21 01/23/21 10:59 16:13 20:15 Sodium Potassium Chloride Carbon Dioxide Anion Gap BUN Creatinine Estim Creat Clear Calc Estimated GFR POC Glucose 154 H 94 180 H Random Glucose Calcium B-Natriuretic Peptide 01/24/21 01/24/21 01/24/21 06:08 06:08 07:16 Sodium 144 Potassium 3.4 Chloride 103 Carbon Dioxide 34 H Anion Gap 10 L BUN 9 Creatinine 1.01 Estim Creat Clear Calc 148.6 Estimated GFR > 60 POC Glucose 141 H Random Glucose 162 H Calcium 7.9 L B-Natriuretic Peptide 145 H Progress Note: A&P Assessment and plan (1) New onset of congestive heart failure: Status: Acute Assessment and Plan: New onset congestive heart failure due to systolic dysfunction, by echocardiogram appears to be either related to hypertension or obesity or untreated sleep apnea. Will require sleep study as outpatient. Will also require ischemic workup as an outpatient. Meanwhile manage his heart failure with initiation appropriate neurohormonal modulation. Would start on Coreg 3.125 mg b.i.d.. Continue spironolactone 25 mg daily. Switch lisinopril to Diovan 160 mg b.i.d. for eventual transition as outpatient to Entresto therapy. Continue IV diuresis Lasix. CHF education to be provided to the patient. This was discussed with patient's at bedside and she understands. Will follow with the Fall Risk Details Current Medications: Current Medications Acetaminophen (Acetaminophen 325 Mg Tablet) 650 mg PO Q6H PRN PRN Reason: Pain, Mild (Pain Scale 1-3) Atorvastatin Calcium (Atorvastatin Calcium 40 Mg Tablet) 40 mg PO BEDTIME KARLY Last Admin: 01/23/21 20:26 Dose: 40 mg Documented by: Dextrose (Dextrose 50 % 25 Gm/50 Ml Vial) 25 gm IVPUSH Q15M PRN; Protocol PRN Reason: per Hypoglycemia Standing Ord. Furosemide (Furosemide 40 Mg/4 Ml Vial) 40 mg IVPUSH BID@0900,1800 [facility]; Protocol Last Admin: 01/24/21 09:49 Dose: 40 mg Documented by: Glucose (Glucose Gel 15 Gm Gel..Gram.) 15 gm PO Q15M PRN; Protocol PRN Reason: per Hypoglycemia Standing Ord. Heparin Sodium (Porcine) (Heparin Sodium,Porcine 5,000 Unit/Ml Vial) 5,000 unit SUBCUT Q12H [facility] Last Admin: 01/24/21 05:52 Dose: 5,000 unit Documented by: Meropenem 1 gm/ Sodium (Chloride) 100 mls @ 100 mls/hr IV Q8H [facility] Last Infusion: 01/24/21 10:48 Dose: Infused Documented by: Insulin Glargine (Insulin Glargine,Hum.Rec.Anlog 100 Unit/Ml 10 Ml Vial) 60 unit SUBCUT BEDTIME [facility]ARLY Last Admin: 01/23/21 20:26 Dose: 60 unit Documented by: Insulin Human Lispro (Insulin Lispro 100 Unit/Ml 3 Ml Vial) 0 unit SUBCUT QIDACHS [facility]; Protocol Last Admin: 01/24/21 07:31 Dose: Not Given Documented by: Lisinopril (Lisinopril 20 Mg Tablet) 20 mg PO DAILY [facility]; Protocol Last Admin: 01/24/21 09:49 Dose: 20 mg Documented by: Ondansetron HCl (Ondansetron Hcl 4 Mg/2 Ml Vial) 4 mg IVPUSH Q8H PRN PRN Reason: Nausea and Vomiting Pharmacy Consult (Consult Rx Perform Med Rec) 1 each MISCELLANE ONCE PRN PRN Reason: Consult order Potassium Chloride (Potassium Chloride Er 20 Meq Tab.Er.Prt) 40 meq PO DAILY [facility] Last Admin: 01/24/21 09:50 Dose: 40 meq Documented by: Sodium Chloride (0.9 % Sodium Chloride Flush 3 Ml Syringe) 3 ml IVFLUSH QSHIFT [facility] Last Admin: 01/24/21 09:47 Dose: 3 ml Documented by: Spironolactone (Spironolactone 25 Mg Tablet) 25 mg PO DAILY [facility]; Protocol Last Admin: 01/24/21 09:50 Dose: 25 mg Documented by: Time Spent With Patient Time: Total time spent is greater than 50% in coordination of care (as documented) at patient's floor/unit and/or counseling patient: Time with patient: 25 - 35 minutes Progress Note: Quality Stroke Does the patient have a stroke diagnosis?: No Procedures Date of Service Date of Service: 01/24/21
[2021-01-24] MEDS: Insulin Lispro 100 UNIT/ML 3 ML VIAL SUBCUT (11:33)
--- NOTE | 2021-01-24 12:40 | P.CNID_ITS ---
History of Present Illness Data of Consult Service Date: 01/23/21 Requesting physician: Emerita Garcia Primary Care Provider: Marion Brower MD HPI Reason for consult: osteomyelitsi right foot He is in for CHF He was discharged 12/23 with IV Ertapenem for six weeks for right foot oste omyelitis,finish 01/31 He has no rash or chills He has CHF Review of Systems Review of Systems: Yes all other systems are reviewed and are negative PMFSH Past Medical History Medical History Diabetes mellitus Hypertension Right great toe amputee Undescended left testicle Family History Family History Other Diabetes mellitus Family history: reviewed and not pertinent Surgical History Surgical History Hx of tonsillectomy Social History Social History Household Members: Family Housing: Apartment Do you presently have visiting nurse or other home services: Yes Patient Tobacco Use Status: Never used Tobacco e-Cigarette/Vaping Use: Never Used Use of substances other than those prescribed or required for medical reasons: No Currently Displaying Signs/Symptoms of Drug Intoxication Withdrawal: No Have you been hit, kicked, punched, or otherwise hurt by someone within the past year? If so, by whom?: No Do you feel safe in your current relationship?: No Is there a partner from a previous relationship who is making you feel unsafe now?: No Are you made to feel afraid or neglected: No Advance Directives: Yes Advance Directives on File: Yes Advance Directives Date on File: 12/21/20 Do you have thoughts of harming others: None Do you have a plan to hurt others: No Plan Recently lost weight without trying: No How much weight loss: Not applicable Eating poorly because of decreased appetite: No Nutrition screen score: 0 Nutrition Risks: No Nutritional Risk Poor oral hygiene: No service: No Current occupational status: disabled Meds Allergies Allergy/AdvReac Type Severity Reaction Status Date / Time barium sulfate Allergy Unknown chest pain Verified 01/22/21 12:01 Active Medications: Current Medications Acetaminophen (Acetaminophen 325 Mg Tablet) 650 mg PO Q6H PRN PRN Reason: Pain, Mild (Pain Scale 1-3) Atorvastatin Calcium (Atorvastatin Calcium 40 Mg Tablet) 40 mg PO BEDTIME [facility] Last Admin: 01/23/21 20:26 Dose: 40 mg Documented by: Carvedilol (Carvedilol 3.125 Mg Tablet) 3.125 mg PO BID [facility]; Protocol Dextrose (Dextrose 50 % 25 Gm/50 Ml Vial) 25 gm IVPUSH Q15M PRN; Protocol PRN Reason: per Hypoglycemia Standing Ord. Furosemide (Furosemide 40 Mg/4 Ml Vial) 40 mg IVPUSH BID@0900,1800 [facility]; Protocol Last Admin: 01/24/21 09:49 Dose: 40 mg Documented by: Glucose (Glucose Gel 15 Gm Gel..Gram.) 15 gm PO Q15M PRN; Protocol PRN Reason: per Hypoglycemia Standing Ord. Heparin Sodium (Porcine) (Heparin Sodium,Porcine 5,000 Unit/Ml Vial) 5,000 unit SUBCUT Q12H [facility] Last Admin: 01/24/21 05:52 Dose: 5,000 unit Documented by: Meropenem 1 gm/ Sodium (Chloride) 100 mls @ 100 mls/hr IV Q8H [facility] Last Infusion: 01/24/21 10:48 Dose: Infused Documented by: Insulin Glargine (Insulin Glargine,Hum.Rec.Anlog 100 Unit/Ml 10 Ml Vial) 60 unit SUBCUT BEDTIME [facility] Last Admin: 01/23/21 20:26 Dose: 60 unit Documented by: Insulin Human Lispro (Insulin Lispro 100 Unit/Ml 3 Ml Vial) 0 unit SUBCUT QIDACHS [facility]; Protocol Last Admin: 01/24/21 11:33 Dose: 2 unit Documented by: Ondansetron HCl (Ondansetron Hcl 4 Mg/2 Ml Vial) 4 mg IVPUSH Q8H PRN PRN Reason: Nausea and Vomiting Pharmacy Consult (Consult Rx Perform Med Rec) 1 each MISCELLANE ONCE PRN PRN Reason: Consult order Potassium Chloride (Potassium Chloride Er 20 Meq Tab.Er.Prt) 40 meq PO DAILY [facility] Last Admin: 01/24/21 09:50 Dose: 40 meq Documented by: Sodium Chloride (0.9 % Sodium Chloride Flush 3 Ml Syringe) 3 ml IVFLUSH QSHIFT [facility] Last Admin: 01/24/21 11:34 Dose: 3 ml Documented by: Spironolactone (Spironolactone 25 Mg Tablet) 25 mg PO DAILY [facility]; Protocol Last Admin: 01/24/21 09:50 Dose: 25 mg Documented by: Valsartan (Valsartan 160 Mg Tablet) 160 mg PO BID [facility]; Protocol Home Medications Medication Instructions Recorded Confirmed Last Taken Type cholecalciferol (vitamin D3) 1,250 1,250 mcg PO Q14D 12/20/20 01/22/21 01/15/21 History mcg (50,000 unit) capsule dulaglutide 3 mg/0.5 mL 3 mg SUBCUT WE@0900 12/20/20 01/22/21 01/17/21 History subcutaneous pen injector (Trulicity) insulin glargine 100 unit/mL (3 60 unit SUBCUT BEDTIME 12/20/20 01/22/21 01/21/21 History mL) subcutaneous pen (Lantus Solostar U-100 Insulin) atorvastatin 40 mg tablet 1 tab PO BEDTIME 01/22/21 01/22/21 01/21/21 History insulin aspart U-100 100 unit/mL See Protocol SUBCUT TIDAC 01/22/21 01/22/21 01/21/21 History (3 mL) subcutaneous pen (Novolog Flexpen U-100 Insulin aspart) Physical Exam Vital Signs: Vital Signs: Last Vital Signs Temp 98.4 F 01/24/21 10:49 Pulse 87 01/24/21 10:49 Resp 20 01/24/21 10:49 BP 140/77 H 01/24/21 10:49 Pulse Ox 95 01/24/21 10:49 BMI result Body Mass Index 47.9 Const: General: cooperative Eyes: General: appearance normal, both eyes and all related structures Resp: Effort & Inspection: normal respiratory effort Cardio: Rate: regular rate Rhythm: regular rhythm GI: Palpation (GI): Soft to palpation and nontender Extrem: Other: right foot stable Results Labs CBC & Chem 7: 01/23/21 06:05 01/24/21 06:08 Labs: BMP 01/24/21 06:08 Sodium 144 Potassium 3.4 Chloride 103 Carbon Dioxide 34 H BUN 9 Creatinine 1.01 Calcium 7.9 L Assessment and Plan (1) Osteomyelitis: Qualifiers: Laterality: left Osteomyelitis location: foot Osteomyelitis type: other acute Qualified Code(s): M86.172 - Other acute osteomyelitis, left ankle and foot Status: Acute There are no acute changes Finish Ertapenem on 01/31 He can use Merepenem while in hospital
--- NOTE | 2021-01-24 13:25 | MHC.CM.PN ---
per rounds no dc date at this time plan reman ins home no services
--- NOTE | 2021-01-24 14:21 | HO.PM.IMPN ---
Subjective Subjective Date of Service: 01/24/21 Interval History: chf Review of Systems Shortness of breath has improvin,Ambulating with more ease ability up to bathroom Denies chest pain, nausea, vomiting, diarrhea Physical Exam Vital Signs: Vital Signs: Last Vital Signs Temp 98.4 F 01/24/21 10:49 Pulse 87 01/24/21 10:49 Resp 20 01/24/21 10:49 BP 140/77 H 01/24/21 10:49 Pulse Ox 95 01/24/21 10:49 BMI result Body Mass Index 47.9 physical exam: Appearance: Alert.? Oriented X3.? not in distress. cvs: [id number], [id number] , no murmur res: clear to auscultation ,no rhonchii or wheezing abd: no rebound or guarding ,nt, bs present. ext pulses present , no cyanosis ,edema 1+. neuro: axo3 , nonfocal. Objective Data Active Medications Acetaminophen (Acetaminophen 325 Mg Tablet) 650 mg PO Q6H PRN PRN Reason: Pain, Mild (Pain Scale 1-3) Atorvastatin Calcium (Atorvastatin Calcium 40 Mg Tablet) 40 mg PO BEDTIME [facility] Last Admin: 01/23/21 20:26 Dose: 40 mg Documented by: HOANG Carvedilol (Carvedilol 3.125 Mg Tablet) 3.125 mg PO BID [facility]; Protocol Dextrose (Dextrose 50 % 25 Gm/50 Ml Vial) 25 gm IVPUSH Q15M PRN; Protocol PRN Reason: per Hypoglycemia Standing Ord. Furosemide (Furosemide 40 Mg/4 Ml Vial) 40 mg IVPUSH BID@0900,1800 [facility]; Protocol Last Admin: 01/24/21 09:49 Dose: 40 mg Documented by: BRIAN Glucose (Glucose Gel 15 Gm Gel..Gram.) 15 gm PO Q15M PRN; Protocol PRN Reason: per Hypoglycemia Standing Ord. Heparin Sodium (Porcine) (Heparin Sodium,Porcine 5,000 Unit/Ml Vial) 5,000 unit SUBCUT Q12H [facility] Last Admin: 01/24/21 05:52 Dose: 5,000 unit Documented by: OANH Meropenem 1 gm/ Sodium (Chloride) 100 mls @ 100 mls/hr IV Q8H [facility] Last Infusion: 01/24/21 10:48 Dose: 0 mls/hr Documented by: BRIAN Insulin Glargine (Insulin Glargine,Hum.Rec.Anlog 100 Unit/Ml 10 Ml Vial) 60 unit SUBCUT BEDTIME [facility] Last Admin: 01/23/21 20:26 Dose: 60 unit Documented by: HOANG Insulin Human Lispro (Insulin Lispro 100 Unit/Ml 3 Ml Vial) 0 unit SUBCUT QIDACHS [facility]; Protocol Last Admin: 01/24/21 11:33 Dose: 2 unit Documented by: BRIAN Ondansetron HCl (Ondansetron Hcl 4 Mg/2 Ml Vial) 4 mg IVPUSH Q8H PRN PRN Reason: Nausea and Vomiting Pharmacy Consult (Consult Rx Perform Med Rec) 1 each MISCELLANE ONCE PRN PRN Reason: Consult order Potassium Chloride (Potassium Chloride Er 20 Meq Tab.Er.Prt) 40 meq PO DAILY [facility] Last Admin: 01/24/21 09:50 Dose: 40 meq Documented by: BRIAN Sodium Chloride (0.9 % Sodium Chloride Flush 3 Ml Syringe) 3 ml IVFLUSH QSHIFT [facility] Last Admin: 01/24/21 11:34 Dose: 3 ml Documented by: BRIAN Spironolactone (Spironolactone 25 Mg Tablet) 25 mg PO DAILY [facility]; Protocol Last Admin: 01/24/21 09:50 Dose: 25 mg Documented by: BRIAN Valsartan (Valsartan 160 Mg Tablet) 160 mg PO BID [facility]; Protocol Labs CBC & Chem 7: 01/23/21 06:05 01/24/21 06:08 Labs: Laboratory Results - last 24 hr 01/23/21 01/23/21 01/24/21 16:13 20:15 06:08 Anion Gap 10 L Estim Creat Clear Calc 148.6 Estimated GFR > 60 POC Glucose 94 180 H Random Glucose 162 H Calcium 7.9 L B-Natriuretic Peptide 01/24/21 01/24/21 01/24/21 06:08 07:16 10:51 Anion Gap Estim Creat Clear Calc Estimated GFR POC Glucose 141 H 181 H Random Glucose Calcium B-Natriuretic Peptide 145 H Assessment and Plan (1) New onset of congestive heart failure: Status: Acute (2) Osteomyelitis: Status: Acute Assessment and Plan: 45-year-old man admitted with acute congestive heart failure 1.New onset acute congestive heart failure.? Dyspnea on exertion, lower extremity edema IV Lasix 40 mg twice daily,Aldactone , valsartan and coreg. Echocardiogram pending Cardiology -Left Ventricle Normal left ventricular cavity size.? There is moderately increased left ventricular wall thickness.? The left ventricular systolic function is moderately decreased.? The visually estimated ejection fraction is between 35 40%.? There is moderate global hypokinesis.? Spectral Doppler is indicative of a pseudonormal filling pattern.? Follow intake and output -total neg around 1 liter Daily weights ? 2.Acute hypoxic respiratory failure.? Resolved Oxygen saturation 96% initally continue supplemental oxygen-taper oxygen 3.Transaminitis.? Secondary to congestion Diurese Follow LFTs 4.Hypertension. Started on was started on, DC lisinopril. 5.Diabetes mellitus: Fingersticks 130-180 acceptable range. Sliding scale, ADA diet, continue long-acting insulin 6.Osteomyelitis.? Patient was started on IV ertapenem for osteomyelitis of right 3rd toe.? Last dose 01/31/2021 Infectious disease consultation Continue IV ertapenem 7.Morbid Obesity.? BMI 44.2 Discussed importance of weight management as this may contribute to worsening of other comorbidities DVT prophylaxis with heparin Quality Stroke Does the patient have a stroke diagnosis?: No VTE Prior VTE?: No VTE Risk Level:: Medical - moderate - high VTE Device Contraindication: Treatment Not Indicated VTE Drug Contraindication: N/A - Med Ordered
[2021-01-24 14:52] LABS: Alanine Aminotransferase 35 U/L (0-40); Albumin Level 2.5 g/dL (3.5-5.0); Alkaline Phosphatase 105 U/L (39-117); Aspartate Amino Transferase 31 U/L (5-37); Bilirubin Direct 0.2 mg/dL (0.0-0.5); Bilirubin Total 0.4 mg/dL (0.0-1.0)
[2021-01-24 16:11] LABS: Glucose, Whole Blood 122 mg/dL (60-115)
[2021-01-24 20:15] LABS: Glucose, Whole Blood 148 mg/dL (60-115)
[2021-01-24] MEDS: Insulin Glargine,Hum.rec.anlog 100 UNIT/ML 10 ML VIAL 60 UNIT SUBCUT (21:24)
[2021-01-24] MEDS: carvediloL 3.125 MG TABLET PO (21:27)
[2021-01-24] MEDS: Atorvastatin Calcium 40 MG TABLET PO (21:30)
[2021-01-24] MEDS: Valsartan 160 MG TABLET PO (21:30)
[2021-01-25] MEDS: Acetaminophen 325 MG TABLET 650 MG PO (00:47)
[2021-01-25] MEDS: 0.9 % Sodium Chloride Flush 3 ML SYRINGE IVFLUSH ×2 (00:50→09:02)
[2021-01-25 03:33] VITALS: BP 154/74; PULSE 94; RESP 20; TEMP 36.9; O2SAT 92
[2021-01-25 06:00] VITALS: BMI 47.2
[2021-01-25] MEDS: Heparin Sodium,Porcine 5,000 UNIT/ML VIAL 5000 UNIT SUBCUT (06:06)
[2021-01-25 07:48] LABS: Glucose, Whole Blood 134 mg/dL (60-115)
[2021-01-25 08:00] VITALS: BP 157/94; PULSE 87; RESP 20; TEMP 36.7; O2SAT 98
[2021-01-25 09:00] VITALS: BP 157/94; PULSE 87
[2021-01-25] MEDS: Valsartan 160 MG TABLET PO (09:00)
[2021-01-25 09:01] VITALS: BP 157/94; PULSE 87
[2021-01-25] MEDS: Spironolactone 25 MG TABLET PO (09:01)
[2021-01-25] MEDS: Potassium Chloride ER 20 MEQ TAB.ER.PRT 40 MEQ PO (09:01)
[2021-01-25 09:02] VITALS: BP 157/94; PULSE 87
[2021-01-25] MEDS: Furosemide 40 MG/4 ML VIAL IVPUSH (09:02)
[2021-01-25] MEDS: carvediloL 3.125 MG TABLET PO (09:02)
[2021-01-25 11:11] LABS: Anion Gap 9 (12-20); Blood Urea Nitrogen 11 mg/dL (9-16); Calcium 8.2 mg/dL (8.4-10.2); Carbon Dioxide 37 mmol/L (22-29); Chloride 101 mmol/L (96-108); Creatinine Clr Calc Pharmacy 139.1; Estimated Glomerular Filt Rate > 60; Glucose Random 120 mg/dL (60-115); Potassium 3.8 mmol/L (3.3-5.1); Sodium 143 mmol/L (135-145)
[2021-01-25 11:20] LABS: Glucose, Whole Blood 113 mg/dL (60-115)
[2021-01-25 12:00] VITALS: BP 147/71; PULSE 91; RESP 20; TEMP 36.6; O2SAT 96
--- NOTE | 2021-01-25 12:04 | P.DS_ITS ---
DS: Providers Provider Date of Service: 01/25/21 Date of admission: 01/22/21 17:21 Primary care physician: Marion Brower MD Consults: 01/22/21 17:21 Consult to Cardiology Routine Consulting Provider: Milan Duval Reason for consultation: chf Has provider been notified: No 01/22/21 17:52 Consult to Infectious Diseases Routine Consulting Provider: Margie Bautista Reason for consultation: osteomyelitis Has provider been notified: No DS: Diagnosis Discharge Diagnosis (1) New onset of congestive heart failure: Status: Acute (2) Osteomyelitis: Status: Acute (3) Left foot pain: Status: Acute DS: Summary Hospital Course Hospital Course: 45 year old man presenting with increased shortness of breath over the last week. He reported ambulating and walking up stairs he is more sob. He lives on the 4th floor. He denied chest pain, nausea, vomiting, diarrhea, fever, chills, recent illness.? In the ER, chest x-ray showing bilateral increased pulmonary vascularity suggestive of congestion. BNP 284.? blood pressure is elevated at 187/110, liver enzymes are also mildly elevated.? He received a dose of IV Lasix 20 mg in the ER.? He be admitted for further management and treatment of acute congestive heart failure. Hospital course: New onset congestive heart failure due to systolic dysfunction, by echo cardiogram appears to be either related to hypertension or obesity or untreated sleep apnea.? Meanwhile managed his heart failure -?with iv lasix, on Coreg 3.125 mg b.i.d..? Continue spironolactone 25 mg daily.? Switch lisinopril to Diovan 160 mg b.i.d. for eventual transition as outpatient to Entresto therapy.? Switched to p.o. Bumex upon discharge.Will require sleep study as outpatient.? Will also require ischemic workup as an outpatient.? patient improved significantly with IV Lasix, BNP is trending down, going home with Coreg, Diovan, spironolactone, Bumex. CHF education given in detail. Cardiology may arrange their own appointment, patient will need outpatient pulmonary evaluation as per PCP for outpatient sleep study. Osteomyelitis was patient is to complete his antibiotic course, monitor CBC, BMP, LFT Q weekly until on antibiotics. Further management outpatient as per PCP. Above management discussed with the patient in detail with kinyarwanda length he understand and in agreement with the above plan, time spent 50 minutes and 50% time spent on counseling. Significant findings: As above. Procedures performed: None. Treatment and response: As above. Complications: None. Time Spent with Patient Time attestation: Total time spent providing and/or coordinating discharge services: Discharge coordination time: Greater than 30 minutes Quality: Stroke Does the patient have a stroke diagnosis?: No Physical Exam Vital Signs: Vital Signs: Last Vital Signs Temp 98.1 F 01/25/21 08:00 Pulse 87 01/25/21 09:02 Resp 20 01/25/21 08:00 BP 157/94 H 01/25/21 09:02 Pulse Ox 98 01/25/21 08:00 BMI result Body Mass Index 47.2 Appearance: Alert.? Oriented X3.? not in distress. cvs: rrr, [id number] , no murmur res: clear to auscultation ,no rhonchii or wheezing abd: no rebound or guarding ,nt, bs present. ext pulses present , no cyanosis ,no edema neuro: axo3 , nonfocal. DS: Data Data Completed and Pending Completed studies during hospitalization [Text1]: Procedures Insertion of Infusion Device into Superior Vena Cava, Percutaneous Approach (12/20/20) Labs on day of discharge: Laboratory Results - last 24 hr 01/24/21 01/24/21 01/24/21 06:08 16:08 20:12 Sodium Potassium Chloride Carbon Dioxide Anion Gap BUN Creatinine Estim Creat Clear Calc Estimated GFR POC Glucose 122 H 148 H Random Glucose Calcium Total Bilirubin 0.4 Direct Bilirubin 0.2 AST 31 ALT 35 Alkaline Phosphatase 105 Total Protein 5.0 L Albumin 2.5 L 01/25/21 01/25/21 01/25/21 07:34 10:40 11:17 Sodium 143 Potassium 3.8 Chloride 101 Carbon Dioxide 37 H Anion Gap 9 L BUN 11 Creatinine 1.07 Estim Creat Clear Calc 139.1 Estimated GFR > 60 POC Glucose 134 H 113 Random Glucose 120 H Calcium 8.2 L Total Bilirubin Direct Bilirubin AST ALT Alkaline Phosphatase Total Protein Albumin Additional Comments Additional comments: CXr: IMPRESSION: Bilateral increased pulmonary vascularity suggestive of congestion. ECho; Conclusions: -? 1.? Moderate left ventricular hypertrophy with moderately ? ? reduced LV systolic function with LVEF of 35-40% with? pseudonormal filling pattern ? 2. Limited visualization of cardiac valves with normal cardiac ? valvular Doppler ? 3.? Suggestion of increased right atrial pressures ? 4. Small pericardial effusion more prominent along the right ? ? atrium ? Discharge Plan Discharge Patient Disposition: Home Health Service Discharge Diagnosis: chf exceration-systolic dysfunction Referrals: Estrellita GONZALEZ [Outside] - 1 Week Marion Bernard MD [Primary Care Provider] - 1 Week Discharge Medications: New bumetanide 2 mg tablet 2 mg PO DAILY Qty: 30 RF: 0 spironolactone 25 mg Tablet 25 mg PO DAILY Qty: 30 RF: 0 carvedilol 3.125 mg Tablet 3.125 mg PO BID Qty: 60 RF: 0 valsartan 160 mg Tablet 160 mg PO BID Qty: 60 RF: 0 Continued metformin 1,000 mg tablet 1,000 mg PO DAILY 30 Days Qty: 30 RF: 3 (DME) FreeStyle Lite Strips Strip See Rx Instructions .ROUTE .MEDSUPPLY Qty: 200 RF: 4 (DME) blood-glucose meter [FreeStyle Lite Meter] Kit See Rx Instructions .ROUTE .MEDSUPPLY Qty: 1 RF: 0 glimepiride 4 mg tablet 4 mg PO DAILY 30 Days Qty: 30 RF: 3 (DME) lancets [FreeStyle Lancets] 28 gauge misc See Rx Instructions .ROUTE .MEDSUPPLY Qty: 200 RF: 4 (DME) pen needle, diabetic [CareFine Pen Needle] 31 gauge x 1/4 needle See Rx Instructions .Route Qty: 50 RF: 5 cholecalciferol (vitamin D3) 1,250 mcg (50,000 unit) capsule 1,250 mcg PO Q14D RF: 0 Lantus Solostar U-100 Insulin 100 unit/mL (3 mL) insulin pen 60 unit subcut BEDTIME RF: 0 Trulicity 3 mg/0.5 mL pen injector 3 mg subcut WE@0900 RF: 0 ertapenem 1 gram recon soln 1 g IV DAILY Qty: 38 RF: 0 atorvastatin 40 mg tablet 1 tab PO BEDTIME RF: 0 insulin aspart U-100 [Novolog Flexpen U-100 Insulin] 100 unit/mL (3 mL) insulin pen See Protocol sliding scale dose subcut TIDAC RF: 0 Discontinued lisinopril 10 mg Tablet 10 mg PO DAILY Qty: 30 RF: 0 Discharge Orders: Discharge Order (Routine); Ordered 01/25/21 Ordered By: Valentine Gann Diet: advance to usual diet, diabetic diet and low fat, low cholesterol Activity on Discharge: As tolerated Stand Alone Forms: Patient Portal Discharge page Other Ambulatory Orders: Basic Metabolic Panel Fasting (Routine) Timeframe: 1 Week Facility: [facility] - Location: Laboratory Ordered By: Valentine Gann Complete Blood Count no Diff (Routine) Timeframe: 1 Week Facility: [facility] - Location: Laboratory Ordered By: Valentine Gann Liver Panel (Routine) Timeframe: 1 Week Facility: [facility] - Location: Laboratory Ordered By: Valentine Gann Care Plan Goals: New onset congestive heart failure due to systolic dysfunction, by echocardiogram appears to be either related to hypertension or obesity or untreated sleep apnea.? Will also require ischemic workup as an outpatient.? Meanwhile managed his heart failure -?with iv lasix, on Coreg 3.125 mg b.i.d..? Continue spironolactone 25 mg daily.? Switch lisinopril to Diovan 160 mg b.i.d. for eventual transition as outpatient to Entresto therapy.? Switched to p.o. Bumex upon discharge.Will require sleep study as outpatient.? Cardiology may arrange their own appointment, patient will need outpatient pulmonary evaluation as per PCP for outpatient sleep study. Osteomyelitis was patient is to complete his antibiotic course, monitor CBC, BMP, LFT Q weekly until on antibiotics outpatiently with pcp. Further management outpatient as per PCP. Health Concerns: as above. Plan of Treatment: As above. Assessment: As above. Patient Instructions: Heart Failure (DC), Heart Failure (GEN) Discharge Date/Time: 01/25/21 14:20
--- NOTE | 2021-01-25 12:15 | P.PNCA_ITS ---
Subjective Subjective Date of Service: 01/25/21 Principal diagnosis: Congestive heart failure Interval history: Patient feeling better. Has diuresed well. Blood pressure still remains elevated. Review of Systems Constitutional: Reports no additional constitutional complaints Cardiovascular: Reports dyspnea on exertion Respiratory: Reports no additional respiratory complaints and Reports dyspnea on exertion Gastrointestinal: Reports no additional gastrointestinal complaints Genitourinary: Reports no additional male genitourinary complaints Skin/Breast: Reports system reviewed and no additional complaints, except as docu Reports system reviewed and no additional complaints, except as documented Psychiatric: Reports no additional psychiatric complaints Endocrine: Reports no additional endocrine complaints Hematologic/Lymphatic: Reports no additional hematologic/lymphatic complaints Physical Exam Vital Signs: Last Vital Signs Temp 98.1 F 01/25/21 08:00 Pulse 87 01/25/21 09:02 Resp 20 01/25/21 08:00 BP 157/94 H 01/25/21 09:02 Pulse Ox 98 01/25/21 08:00 BMI result Body Mass Index 47.2 Const General: cooperative, comfortable, alert and awake Nutritional Appearance: obese morbidly obese Orientation/consciousness: patient oriented x3 Neck Neck: Yes trachea midline and Yes supple Resp Effort & Inspection: normal respiratory effort Auscultation: clear to auscultation bilaterally Cardio Palpation: normal PMI Rate: regular rate Rhythm: regular rhythm Heart sounds: S1 normal heart sound present, S2 normal heart sound present, no click, no gallops and no murmurs GI Inspection: Yes obesity Auscultation: normal bowel sounds Skin General skin exam: no rashes or lesions noted Neuro General: patient oriented x3 and no focal motor deficits Extrem General: No clubbing, No cyanosis and Yes edema Objective Labs and Meds Result diagrams: 01/23/21 06:05 01/25/21 10:40 Lab results: Laboratory Results - last 24 hr 01/24/21 01/24/21 01/24/21 06:08 16:08 20:12 Sodium Potassium Chloride Carbon Dioxide Anion Gap BUN Creatinine Estim Creat Clear Calc Estimated GFR POC Glucose 122 H 148 H Random Glucose Calcium Total Bilirubin 0.4 Direct Bilirubin 0.2 AST 31 ALT 35 Alkaline Phosphatase 105 Total Protein 5.0 L Albumin 2.5 L 01/25/21 01/25/21 01/25/21 07:34 10:40 11:17 Sodium 143 Potassium 3.8 Chloride 101 Carbon Dioxide 37 H Anion Gap 9 L BUN 11 Creatinine 1.07 Estim Creat Clear Calc 139.1 Estimated GFR > 60 POC Glucose 134 H 113 Random Glucose 120 H Calcium 8.2 L Total Bilirubin Direct Bilirubin AST ALT Alkaline Phosphatase Total Protein Albumin Progress Note: A&P Assessment and plan (1) New onset of congestive heart failure: Status: Acute Assessment and Plan: Patient with systolic heart failure with moderate LV systolic dysfunction question hypertension related worse is sleep apnea related. Requires workup for sleep apnea as outpatient as soon as possible. Will also require ischemic workup. Can discharge home today. Switch to Bumex 2 mg daily. Heart failure management was discussed with him and his . The showed understanding. Also should provide printed instructions in Mongolian. Continue neurohormonal modulation with valsartan, spironolactone and can increase Coreg to 6.25 mg b.i. d.. In the long run requires aggressive weight loss program. Will follow up in the clinic in 10-14 days. Fall Risk Details Current Medications: Current Medications Acetaminophen (Acetaminophen 325 Mg Tablet) 650 mg PO Q6H PRN PRN Reason: Pain, Mild (Pain Scale 1-3) Last Admin: 01/25/21 00:47 Dose: 650 mg Documented by: Atorvastatin Calcium (Atorvastatin Calcium 40 Mg Tablet) 40 mg PO BEDTIME KARLY Last Admin: 01/24/21 21:30 Dose: 40 mg Documented by: Carvedilol (Carvedilol 3.125 Mg Tablet) 3.125 mg PO BID KARLY; Protocol Last Admin: 01/25/21 09:02 Dose: 3.125 mg Documented by: Dextrose (Dextrose 50 % 25 Gm/50 Ml Vial) 25 gm IVPUSH Q15M PRN; Protocol PRN Reason: per Hypoglycemia Standing Ord. Glucose (Glucose Gel 15 Gm Gel..Gram.) 15 gm PO Q15M PRN; Protocol PRN Reason: per Hypoglycemia Standing Ord. Heparin Sodium (Porcine) (Heparin Sodium,Porcine 5,000 Unit/Ml Vial) 5,000 unit SUBCUT Q12H KARLY Last Admin: 01/25/21 06:06 Dose: 5,000 unit Documented by: Meropenem 1 gm/ Sodium (Chloride) 100 mls @ 100 mls/hr IV Q8H [facility] Last Infusion: 01/25/21 11:51 Dose: Infused Documented by: Insulin Glargine (Insulin Glargine,Hum.Rec.Anlog 100 Unit/Ml 10 Ml Vial) 60 unit SUBCUT BEDTIME [facility] Last Admin: 01/24/21 21:24 Dose: 60 unit Documented by: Insulin Human Lispro (Insulin Lispro 100 Unit/Ml 3 Ml Vial) 0 unit SUBCUT QIDACHS [facility]; Protocol Last Admin: 01/25/21 07:54 Dose: Not Given Documented by: Ondansetron HCl (Ondansetron Hcl 4 Mg/2 Ml Vial) 4 mg IVPUSH Q8H PRN PRN Reason: Nausea and Vomiting Pharmacy Consult (Consult Rx Perform Med Rec) 1 each MISCELLANE ONCE PRN PRN Reason: Consult order Potassium Chloride (Potassium Chloride Er 20 Meq Tab.Er.Prt) 40 meq PO DAILY [facility] Last Admin: 01/25/21 09:01 Dose: 40 meq Documented by: Sodium Chloride (0.9 % Sodium Chloride Flush 3 Ml Syringe) 3 ml IVFLUSH QSHIFT [facility] Last Admin: 01/25/21 09:02 Dose: 3 ml Documented by: Spironolactone (Spironolactone 25 Mg Tablet) 25 mg PO DAILY [facility]; Protocol Last Admin: 01/25/21 09:01 Dose: 25 mg Documented by: Valsartan (Valsartan 160 Mg Tablet) 160 mg PO BID [facility]; Protocol Last Admin: 01/25/21 09:00 Dose: 160 mg Documented by: Time Spent With Patient Time: Total time spent is greater than 50% in coordination of care (as documented) at patient's floor/unit and/or counseling patient: Time with patient: 25 - 35 minutes Progress Note: Quality Stroke Does the patient have a stroke diagnosis?: No Procedures Date of Service Date of Service: 01/25/21
--- NOTE | 2021-01-25 12:45 | MHC.CM.PN ---
Patient has been medically cleared for dc to home to resume services.Patient was active with [facility] and [facility] for LT IV ABT.Both [facility] and [facility] have been notified of today's dc.Patient and his are pleased that Patient will be able to return home today.
[2021-01-25] MEDS: Ertapenem Sodium 1 GM in 0.9 % Sodium Chloride 50 ML IV (13:29)
== END 2021-01-25 14:20 | disposition home health service (06) | DRG 194 ==
LOC: HO.ED 17:00 → HO.EDOVER 17:38 → HO.IMC 22:19
PROVIDERS: Admitting Provider Nurse Practitioner Acute Care; Emergency Provider Emergency Medicine; PCP Internal Medicine; Visit Provider Internal Medicine
DX: I11.0 Hypertensive heart disease with heart failure (principal); J96.01 Acute respiratory failure with hypoxia; M86.172 Other acute osteomyelitis, left ankle and foot; I50.21 Acute systolic (congestive) heart failure; G47.30 Sleep apnea, unspecified; E11.69 Type 2 diabetes mellitus with other specified complication; E66.01 Morbid (severe) obesity due to excess calories; Z68.41 Body mass index [BMI] 40.0-44.9, adult; Z20.822 Contact with and (suspected) exposure to COVID-19; Z79.4 Long term (current) use of insulin; Z79.899 Other long term (current) drug therapy
CPT/HCPCS: 0241U; 36415; 71046; 80048; 80076; 82947; 83880; 84484; 85025; 93005; 93306; 96374; 99285; J1335; J1940; J2185; Q9957

== ENCOUNTER → 2021-02-07 13:30 | Outpatient (BNVA) | payer OTHER, SELFPAY | PROVIDERS: PCP Hospitalist; Referring Provider Hospitalist; Visit Provider Nurse Practitioner Family | DX: I11.0 Hypertensive heart disease with heart failure (principal); I50.9 Heart failure, unspecified; I42.9 Cardiomyopathy, unspecified; E66.9 Obesity, unspecified; R06.83 Snoring | CPT/HCPCS: 99212 ==

== ENCOUNTER → 2021-02-28 11:05 | Outpatient (BNVA) | payer OTHER, SELFPAY | PROVIDERS: PCP Hospitalist; Visit Provider Internal Medicine | DX: E11.69 Type 2 diabetes mellitus with other specified complication (principal); M86.9 Osteomyelitis, unspecified | CPT/HCPCS: 99212 ==

== ENCOUNTER 2021-03-01 10:48 | Outpatient (REF) | payer OTHER, SELFPAY ==
[2021-03-01 11:55] LABS: Amphetamine Screen Urine Not Detected (Not Detect); Barbiturates, Urine Not Detected (Not Detect); Benzodiazepines Screen Urine Not Detected (Not Detect); Cannabinoid Screen Urine Not Detected (Not Detect); Cocaine Screen Urine Not Detected (Not Detect); Fentanyl, urine Not Detected (Not Detect); Opiate Screen Urine Not Detected (Not Detect); Phencyclidine Screen Urine Not Detected (Not Detect)
== END 2021-03-01 10:49 | disposition home or self-care (01) ==
LOC: HO.LNP 10:48
PROVIDERS: Visit Provider Hospitalist
DX: Z02.83 Encounter for blood-alcohol and blood-drug test (principal)
CPT/HCPCS: 80307

== ENCOUNTER → 2021-03-08 08:49 | Outpatient (REF) | payer OTHER, SELFPAY | LOC: HO.SL 08:49 | PROVIDERS: Visit Provider Hospitalist | DX: Z13.89 Encounter for screening for other disorder (principal) ==

== ENCOUNTER 2021-03-22 09:50 | Outpatient (REF) | payer OTHER, SELFPAY ==
[2021-03-22 10:35] LABS: Hematocrit 49.9 % (42.0-52.0); Hemoglobin 16.3 g/dl (14.0-18.0); Mean Corpuscular HGB Conc 32.7 g/dl (31.0-36.0); Mean Corpuscular Volume 79.5 fL (80.0-98.0); Mean Platelet Volume 10.4 fL (9.4-12.4); Platelet Count 218 X10*3/uL (160-400); Red Blood Count 6.28 X10*6/uL (4.60-5.80); Red Cell Distribution Width 13.2 % (11.0-16.0); White Blood Count 8.4 X10*3/uL (4.8-10.8)
[2021-03-22 10:50] LABS: Alanine Aminotransferase 18 U/L (0-40); Albumin Level 3.6 g/dL (3.5-5.0); Alkaline Phosphatase 97 U/L (39-117); Anion Gap 10 (12-20); Aspartate Amino Transferase 23 U/L (5-37); Bilirubin Direct 0.2 mg/dL (0.0-0.5); Bilirubin Total 0.5 mg/dL (0.0-1.0); Blood Urea Nitrogen 27 mg/dL (9-16); Calcium 8.6 mg/dL (8.4-10.2); Carbon Dioxide 36 mmol/L (22-29); Chloride 97 mmol/L (96-108); Estimated Glomerular Filt Rate 43; Glucose Random 284 mg/dL (60-115); Potassium 4.5 mmol/L (3.3-5.1); Sodium 138 mmol/L (135-145); Total Protein 6.6 g/dL (6.5-8.0)
[2021-03-22 11:01] LABS: B Type Natriuretic Peptide 52 pg/mL (<100)
== END 2021-03-22 09:51 | disposition home or self-care (01) ==
LOC: HO.LAB 09:50
PROVIDERS: Absent Provider Internal Medicine; PCP Hospitalist; Visit Provider Nurse Practitioner Family
DX: I50.9 Heart failure, unspecified (principal); M86.9 Osteomyelitis, unspecified; M79.672 Pain in left foot
CPT/HCPCS: 36415; 80048; 80076; 83880; 85027

== ENCOUNTER 2021-03-26 08:46 | Outpatient (REF) | payer OTHER, SELFPAY ==
[2021-03-26 09:38] LABS: B Type Natriuretic Peptide 115 pg/mL (<100)
== END 2021-03-26 08:47 | disposition home or self-care (01) ==
LOC: HO.LAB 08:46
PROVIDERS: PCP Hospitalist; Visit Provider Nurse Practitioner Family
DX: I50.41 Acute combined systolic (congestive) and diastolic (congestive) heart failure (principal)
CPT/HCPCS: 36415; 83880

== ENCOUNTER 2021-03-28 09:02 | Outpatient (REF) | payer OTHER, SELFPAY ==
[2021-03-28 10:58] LABS: Anion Gap 13 (12-20); Blood Urea Nitrogen 16 mg/dL (9-16); Carbon Dioxide 30 mmol/L (22-29); Chloride 104 mmol/L (96-108); Estimated Glomerular Filt Rate > 60; Glucose Random 186 mg/dL (60-115); Potassium 4.7 mmol/L (3.3-5.1); Sodium 142 mmol/L (135-145)
== END 2021-03-28 09:03 | disposition home or self-care (01) ==
LOC: HO.LAB 09:02
PROVIDERS: Visit Provider Nurse Practitioner Family
DX: G47.33 Obstructive sleep apnea (adult) (pediatric) (principal); R06.00 Dyspnea, unspecified; I42.9 Cardiomyopathy, unspecified; N17.9 Acute kidney failure, unspecified
CPT/HCPCS: 36415; 80048; 99202; 99211

== ENCOUNTER → 2021-03-28 10:28 | Outpatient (REF) | payer OTHER, SELFPAY | LOC: HO.SL 10:28 | PROVIDERS: Visit Provider Hospitalist | DX: E66.9 Obesity, unspecified (principal); R06.83 Snoring | CPT/HCPCS: 95806 ==

== ENCOUNTER → 2021-04-03 08:47 | Outpatient (REF) | payer OTHER, SELFPAY ==
--- NOTE | ~2021-04-03 | NM_ITS ---
Exercise Myocardial perfusion study Indication: Cardiomyopathy to evaluate for myocardial ischemia Technique: The patient was brought in for an exercise perfusion study on 04/03/2021. Patient performed exercise as per Renan protocol and was injected 45 mCi of sestamibi was given intravenously one target HR was achieved. Images were obtained using the SPECT gamma camera interlaced with the gating device. Images were obtained in supine position. Resting perfusion study was performed on 04/05/2021. Patient was administered 45 mCi of sestamibi intravenously at rest. Images were then obtained in supine position. CT attenuation. It performed as patient was claustrophobic Images were processed with the software and compared side to side in short axis, horizontal long axis and vertical long axis views. Findings: The stress perfusion study showed non attenuated images show mildly reduced uptake in the mid and basal inferolateral as well as mid lateral and inferolateral as well as moderately reduced uptake in the basal myocardium. Uptake in the inferior wall of the myocardium.. The gated study shows reduced LV systolic function with calculated LVEF of 41%. LV cavity is mildly dilated in size. The gated study shows reduced wall thickening and contraction of lateral and inferior segments. There is no transient ischemic dilation. Resting study shows improved uptake in the inferolateral, mid lateral as well as basal lateral and anterolateral as well as minimally reduced uptake in the inferior wall. Gating at rest reveals lateral and inferior wall motion abnormality with ejection fraction at 30%. The findings are consistent with suggestion of lateral as well as inferior ischemia.. NM/NM cardiolite stress test Impression: 1. Mild to moderate intensity lateral, inferolateral and anterolateral ischemia as well as minimal reversible defect of the inferior wall suggestive of ischemia. Findings consistent with multivessel ischemia 2. Gated LVEF is 41% 3. Transient ischemic dilatation not present Stress EKG is negative for ischemia
--- NOTE | 2021-04-03 08:53 | CA_ITS ---
Acquisition Time: 2021-04-03 09:20:43 Total Exercise Time: 00:05:05 Test Indications: SOB Medications: SEE CHART Protocol: MICHAEL Max HR: 150 BPM 85% of Pred: 175 BPM Max BP: 130/080 mmHG Max Work Load: 7.0 METS Exercise stress test with exercise 5 min 5 sec of Michael protocol, with moderate shortness of breath, no chest discomfort, with isolated PAC and PVC, with normotensive response to exercise, without EKG changes meeting criteria for ischemia. In recovery his breathing gradually returned to normal. In later recovery there was scooping ST lead III and slight downslope of ST V6 which was nonspecific. Nuclear images pending. Test reviewed with Dr Garcia. Referred By: Kenya Love Overread By: KENYA LOVE
== END ==
LOC: HO.CARD 08:47
PROVIDERS: PCP Hospitalist; Visit Provider Nurse Practitioner Family
DX: I50.41 Acute combined systolic (congestive) and diastolic (congestive) heart failure (principal); I42.9 Cardiomyopathy, unspecified
CPT/HCPCS: 78452; 93017; A9500; J0280; J2785

== ENCOUNTER → 2021-04-13 09:10 | Outpatient (BNVA) | payer OTHER, SELFPAY | PROVIDERS: PCP Hospitalist; Visit Provider Hospitalist | DX: G47.33 Obstructive sleep apnea (adult) (pediatric) (principal); R06.00 Dyspnea, unspecified; I42.9 Cardiomyopathy, unspecified | CPT/HCPCS: 99212 ==

== ENCOUNTER 2021-04-23 09:43 | Outpatient (REF) | payer OTHER, SELFPAY ==
--- NOTE | 2021-04-23 14:42 | PFT_ITS ---
INDICATION: Dyspnea. SPIROMETRY: FEV1 to FVC of 91% with an FEV1 of 3.72 L, which is 82% predicted, FVC of 4.09 L, which is 72% predicted. No significant response to bronchodilators noted. Maximum voluntary ventilation 115% predicted. LUNG VOLUMES: Total lung capacity 81% predicted with an expiratory reserve volume of 46% predicted. DIFFUSION CAPACITY: DLCO 60% predicted. COMPARISONS: None. INTERPRETATION: No obstructive nor restrictive ventilatory defects identified. No significant response to bronchodilators noted. Normal maximum voluntary ventilation. Lung volumes are low normal with a decrease in the expiratory reserve volume, which could be secondary to the body habitus, although cannot rule out occult interstitial lung conditions. There is also a [id number] diffusion impairment that does correct to normal when correcting for the alveolar volume. Clinical correlation warranted. Graham Garcia MD MR/MODL / [id number]
== END 2021-04-23 09:44 | disposition home or self-care (01) ==
LOC: HO.RESP 09:43
PROVIDERS: PCP Hospitalist; Visit Provider Hospitalist
DX: R06.00 Dyspnea, unspecified (principal)
CPT/HCPCS: 94060; 94727; 94729

== ENCOUNTER 2021-05-14 14:27 | Outpatient (REF) | payer OTHER, SELFPAY ==
[2021-05-14 15:49] LABS: Hematocrit 41.1 % (42.0-52.0); Hemoglobin 13.4 g/dl (14.0-18.0); Mean Corpuscular HGB Conc 32.6 g/dl (31.0-36.0); Mean Corpuscular Hemoglobin 26.8 pg (27.0-33.0); Mean Corpuscular Volume 82.2 fL (80.0-98.0); Mean Platelet Volume 9.9 fL (9.4-12.4); Platelet Count 260 X10*3/uL (160-400); Red Cell Distribution Width 15.2 % (11.0-16.0); White Blood Count 12.2 X10*3/uL (4.8-10.8)
[2021-05-14 15:55] LABS: INTERNATIONAL NORM RATIO 1.1 (0.9-1.1); Prothrombin Time 12.2 SEC (9.9-13.0)
[2021-05-14 16:19] LABS: Anion Gap 10 (12-20); Blood Urea Nitrogen 17 mg/dL (9-16); Calcium 9.3 mg/dL (8.4-10.2); Carbon Dioxide 29 mmol/L (22-29); Chloride 108 mmol/L (96-108); Estimated Glomerular Filt Rate > 60; Glucose Random 70 mg/dL (60-115); Potassium 4.3 mmol/L (3.3-5.1); Sodium 143 mmol/L (135-145)
== END 2021-05-14 14:28 | disposition home or self-care (01) ==
LOC: HO.LAB 14:27
PROVIDERS: PCP Hospitalist; Referring Provider Hospitalist; Visit Provider Internal Medicine Cardiovascular Disease
DX: I50.41 Acute combined systolic (congestive) and diastolic (congestive) heart failure (principal)
CPT/HCPCS: 36415; 80048; 85027; 85610; 99212

== ENCOUNTER 2021-06-11 10:31 | Outpatient (REF) | payer OTHER, SELFPAY ==
[2021-06-11 13:40] LABS: Alanine Aminotransferase 27 U/L (0-40); Albumin Level 3.3 g/dL (3.5-5.0); Alkaline Phosphatase 96 U/L (39-117); Anion Gap 12 (12-20); Aspartate Amino Transferase 24 U/L (5-37); Bilirubin Total 0.8 mg/dL (0.0-1.0); Blood Urea Nitrogen 20 mg/dL (9-16); Calcium 9.1 mg/dL (8.4-10.2); Carbon Dioxide 27 mmol/L (22-29); Chloride 107 mmol/L (96-108); Estimated Glomerular Filt Rate > 60; Glucose Random 236 mg/dL (60-115); Potassium 4.7 mmol/L (3.3-5.1); Sodium 141 mmol/L (135-145); Total Protein 5.8 g/dL (6.5-8.0)
[2021-06-11 14:07] LABS: B Type Natriuretic Peptide 306 pg/mL (<100)
== END 2021-06-11 10:32 | disposition home or self-care (01) ==
LOC: HO.WFDLDS 10:31
PROVIDERS: Visit Provider Family Medicine
DX: I50.41 Acute combined systolic (congestive) and diastolic (congestive) heart failure (principal)
CPT/HCPCS: 36415; 80053; 83880

== ENCOUNTER → 2021-06-21 08:49 | Outpatient (BNVA) | payer OTHER, SELFPAY | PROVIDERS: PCP Hospitalist; Visit Provider Hospitalist | DX: I50.20 Unspecified systolic (congestive) heart failure (principal); G47.33 Obstructive sleep apnea (adult) (pediatric); R06.00 Dyspnea, unspecified; I42.9 Cardiomyopathy, unspecified | CPT/HCPCS: 99212 ==

== ENCOUNTER → 2021-08-28 11:54 | Outpatient (BNVA) | payer OTHER, SELFPAY | PROVIDERS: PCP Hospitalist; Referring Provider Hospitalist; Visit Provider Internal Medicine Cardiovascular Disease | DX: I50.20 Unspecified systolic (congestive) heart failure (principal) | CPT/HCPCS: 99212 ==

== ENCOUNTER → 2021-09-05 08:47 | Outpatient (BNVA) | payer OTHER, SELFPAY | PROVIDERS: PCP Hospitalist; Visit Provider Hospitalist | DX: G47.33 Obstructive sleep apnea (adult) (pediatric) (principal); R06.00 Dyspnea, unspecified; I42.9 Cardiomyopathy, unspecified; G47.00 Insomnia, unspecified | CPT/HCPCS: 99212 ==